=== PATIENT | female | born 1930 | race Caucasian/White ===

== ENCOUNTER 2016-12-03 19:28 | Emergency (ER) | payer MEDICARE, BC, OTHER ==
[2016-12-03] MEDS ORDERED: ACETAMINOPHEN 325 MG TABLET PO STA (20:16)
[2016-12-03] MEDS ORDERED: SODIUM CHLORIDE 0.9% 1,000 ML IV ONE (20:16)
[2016-12-03] MEDS ORDERED: METOCLOPRAMIDE 10 MG/2 ML VIAL IVP STA (20:17)
[2016-12-03] MEDS ORDERED: diphenhydrAMINE INJ 50 MG/ML VIAL IVP STA (20:17)
--- NOTE | 2016-12-03 20:31 | ED Physician Documentation ---
PD HPI HEADACHE - Stated complaint Stated Complaint: HEADACHE/EAR PX - Chief complaint Chief Complaint: Neuro - History obtained from History obtained from: Patient, Family - History of Present Illness Timing - onset: How many days ago (4) Timing - details: Gradual onset, Still present, Intermittant Location: Front Quality: Aching. No: Thunderclap Associated symptoms: No: Fever, Stiff neck, Nausea, Vomiting, Vision changes Improved by: Dark room Worsened by: Light Contributing factors: No: Anticoagulated, Possible carbon monoxide, Hypertension , Recent illness Similar symptoms before: Has not had sx before Recently seen: Not recently seen - Additional information Additional information: Patient is an 86 year old female with a history of chonic sinusities who is presenting to the emergency department for headache and ear fullness. patient states that 3 days prior she started not feeling feel. Patient states that she does not know when the headache started but the pain has become progressively worse. Patient states it iw worse with light and slightly better with rest. Patient states it is in her posterior head and radiates forward. Review of Systems Constitutional: denies: Fever, Chills, Myalgias Eyes: reports: Photophobia. denies: Decreased vision Ears: reports: Ear pain. denies: Tinnitus/ringing Nose: reports: Congestion. denies: Rhinorrhea / runny nose, Epistaxis Throat: denies: Dental pain / toothache, Sore throat Cardiac: denies: Chest pain / pressure, Palpitations Respiratory: reports: Cough. 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 - Present Medications Home Medications: Ambulatory Orders Medication Instructions Recorded Confirmed Albuterol 2.5 mg INH Q4H PRN #30 neb 07/12/13 11/11/14 Albuterol [Ventolin Hfa] 2 puffs INH Q4H PRN #1 inhaler 07/12/13 11/11/14 Hydrochlorothiazide 12.5 mg DAILY 07/12/13 11/11/14 Mupirocin 2% Oint [Bactroban 2% BID 07/12/13 11/11/14 Oint] Oxymetazoline HCl [Afrin] 15 ml NS BID #1 spray 11/11/14 Naproxen 375 mg PO BID #20 tablet 09/15/15 Tramadol HCl 50 mg PO Q6H PRN #15 tablet 09/15/15 - Allergies Allergies/Adverse Reactions: Allergies Allergy/AdvReac Type Severity Reaction Status Date / Time povidone-iodine Allergy Intermediate Itching Verified 12/03/16 19:37 [From Betadine] soap * [From Betadine] Allergy Intermediate Itching Verified 12/03/16 19:37 - Social History Does the pt smoke?: No Smoking Status: Never smoker Does the pt drink ETOH?: No Does the pt have substance abuse?: No - Immunizations Immunizations are current?: Yes - POLST Patient has POLST: No PD ED PE NORMAL - Vitals Vital signs reviewed: Yes - General General: Alert and oriented X 3, Well developed/nourished - HEENT HEENT: Atraumatic, PERRL, Ears normal, Moist mucous membranes, Pharynx benign - Neck Neck: Supple, no meningeal sign, No JVD - Cardiac Cardiac: RRR, No murmur - Respiratory Respiratory: No respiratory distress, Clear bilaterally - Abdomen Abdomen: Soft, Non tender, Non distended - Derm Derm: Normal color, Warm and dry, No rash - Extremities Extremities: No deformity, No tenderness to palpate, Normal ROM s pain, No edema , No calf tenderness / cord - Neuro Neuro: Alert and oriented X 3, cellar pumper 2-12 intact, No motor deficit, No sensory deficit, Normal speech - Psych Psych: Normal mood, Normal affect PD ED PE EXPANDED - Neck Neck: Soft tissue TTP (tenderness to palpation of bilateral neck, worse on on the left than the right, [place]) Results - Vitals Vitals: Vital Signs - 24 hr 12/03/16 12/03/16 19:31 22:09 Temperature 37.0 C 36.4 C L Heart Rate 74 82 Respiratory 16 17 Rate Blood Pressure 171/81 H 189/97 H O2 Saturation 96 96 Oxygen O2 Source Room air - Labs Labs: Laboratory Tests 12/03/16 12/03/16 12/03/16 20:15 20:28 20:28 WBC 8.8 RBC 3.93 L Hgb 12.6 Hct 37.2 MCV 94.8 MCH 32.0 H MCHC 33.8 RDW 13.7 Plt Count 178 MPV 9.5 Neut # 5.8 Lymph # 2.0 [place] # 0.8 Eos # 0.2 Baso # 0.0 Absolute Nucleated RBC 0.00 Nucleated RBCs 0.0 ESR Sodium 135 Potassium 3.7 Chloride 98 L Carbon Dioxide 26 Anion Gap 11.0 BUN 31 H Creatinine 1.1 H Estimated GFR (MDRD) 47 L Glucose 285 H Calcium 10.0 Total Bilirubin 0.5 AST 26 ALT 28 Alkaline Phosphatase 82 Total Protein 7.1 Albumin 3.7 Globulin 3.4 Albumin/Globulin Ratio 1.1 Lipase 32 Urine Color YELLOW Urine Clarity CLEAR Urine pH 6.0 Ur Specific [place] 1.015 Urine Protein NEGATIVE Urine Glucose (UA) 500 H Urine Ketones NEGATIVE Urine Occult Blood NEGATIVE Urine Nitrite NEGATIVE Urine Bilirubin NEGATIVE Urine Urobilinogen 0.2 (NORMAL) Ur Leukocyte Esterase NEGATIVE Ur Microscopic Review NOT INDICATED Urine Culture Comments NOT INDICATED 12/03/16 20:28 WBC RBC Hgb Hct MCV MCH MCHC RDW Plt Count MPV Neut # Lymph # [place] # Eos # Baso # Absolute Nucleated RBC Nucleated RBCs ESR 69 H Sodium Potassium Chloride Carbon Dioxide Anion Gap BUN Creatinine Estimated GFR (MDRD) Glucose Calcium Total Bilirubin AST ALT Alkaline Phosphatase Total Protein Albumin Globulin Albumin/Globulin Ratio Lipase Urine Color Urine Clarity Urine pH Ur Specific [place] Urine Protein Urine Glucose (UA) Urine Ketones Urine Occult Blood Urine Nitrite Urine Bilirubin Urine Urobilinogen Ur Leukocyte Esterase Ur Microscopic Review Urine Culture Comments - Rads (name of study) ct head Radiology: Final report received (no acute abnormalities seen) PD MEDICAL DECISION MAKING - ED course Complexity details: reviewed old records, reviewed results, re-evaluated patient , considered differential, d/w patient, d/w family ED course: Patient was seen and examined at bedside. IV access was gained and labs were drawn. patient was treated with reglan, benadryl fluids and tylenol. Imaging was ordered. When patient was re-evaluated after the fluids and CT she stated she was feeling much better. She still had some neck pain. Patient was offered LP, and additional medications. Patient stated that she was feeling better and would rather follow up with her doctor and come bad if she needed to. Patient was made aware of her hyperglycemia and her glucusuria. Patient was discharged in stable condition and appropriate for outpatient care as the likelihood of sah, encephalitis or meningitis were all unlikely. Departure - Departure Disposition: 01 Home, Self Care Clinical Impression: Neck muscle strain Condition: Good Instructions: ED Neck Pain No Trauma Follow-Up: John Morales MD [Primary Care Provider] - Within 3 Days Comments: Your diagnostics today were within normal limits, aside from your blood glucose and there was glucose in your indicating you likely have diabetes. You will need to follow up with your pmd this week for re-evaluation. You may return to the emergency department at any time for new, worsening or uncontrollable symptoms. Discharge Date/Time: 12/03/16 22:11
[2016-12-03 20:34] LABS: BASOPHILS % (AUTO) 0.5 %; EOSINOPHILS # (AUTO) 0.2 10^3/uL (0.0-0.7); EOSINOPHILS % (AUTO) 1.7 %; HCT - HEMATOCRIT 37.2 % (37.0-47.0); HGB - HEMOGLOBIN 12.6 g/dL (12.0-16.0); LYMPHOCYTES % (AUTO) 23.1 %; MEAN CORPUSCULAR HGB CONC 33.8 g/dL (32.0-36.0); MEAN CORPUSCULAR VOLUME 94.8 fL (81.0-99.0); MEAN PLATELET VOLUME 9.5 fL (7.9-10.8); MONOCYTES # (AUTO) 0.8 10^3/uL (0.0-1.0); MONOCYTES % (AUTO) 8.6 %; NEUTROPHILS # (AUTO) 5.8 10^3/uL (1.5-6.6); NEUTROPHILS % (AUTO) 66.1 %; RED BLOOD COUNT 3.93 10^6/uL (4.20-5.40); RED CELL DISTRIBUTION WIDTH 13.7 % (12.0-15.0); UNCORRECTED WHITE BLOOD COUNT 8.8 x10^3/uL; WHITE BLOOD COUNT 8.8 x10^3/uL (4.8-10.8)
[2016-12-03] MEDS ORDERED: diphenhydrAMINE INJ 50 MG/ML VIAL ONE (20:36)
[2016-12-03] MEDS ORDERED: METOCLOPRAMIDE 10 MG/2 ML VIAL ONE (20:36)
[2016-12-03] MEDS ORDERED: ACETAMINOPHEN 325 MG TABLET PO ONE (20:36)
[2016-12-03 20:46] LABS: ALBUMIN/GLOBULIN RATIO 1.1 (1.0-2.2); BILIRUBIN,TOTAL 0.5 mg/dL (0.2-1.0); CREATININE 1.1 mg/dL (0.4-1.0); POTASSIUM 3.7 mmol/L (3.5-5.0); TOTAL PROTEIN 7.1 g/dL (6.7-8.2)
--- NOTE | 2016-12-03 21:31 | CT Preliminary Report ---
Exam: CT Head W/O IMPRESSION: Generalized age-related cortical atrophic changes without evidence of acute intracranial abnormality. [facility] SITE ID: [id number]
--- NOTE | 2016-12-03 21:34 | CT Report ---
EXAM: CT HEAD EXAM DATE: 12/03/2016 09:00 PM. CLINICAL HISTORY: Headache. COMPARISON: CT sinuses 06/28/2008. TECHNIQUE: Multiaxial CT images were obtained from the foramen magnum to the vertex. IV contrast: Non e. Reformats: Coronal. In accordance with CT protocol optimization, one or more of the following dose reduction techniques w ere utilized for this exam: automated exposure control, adjustment of mA and/or KV based on patient s ize, or use of iterative reconstructive technique. FINDINGS: Parenchyma: No intraparenchymal hemorrhage. No evidence of mass, midline shift, or CT findings of acu te infarction. Esquivel-white differentiation is distinct. Extraaxial Spaces: Normal for age. No subdural or epidural collections identified. Ventricles: The ventricles and cortical sulci are enlarged, consistent with age-related tissue loss. Sinuses: Redemonstration prior sinus surgery. Status post bilateral lens replacement surgery. Imaged paranasal sinuses, orbits otherwise, and mastoids show no significant abnormality. Bones: No evidence of fracture or calvarial defect. Other: Diffuse chronic microangiopathic white matter changes are evident. Atherosclerosis of the intr acranial arteries. IMPRESSION: Generalized age-related cortical atrophic changes without evidence of acute intracranial abnormality. [facility] Referring Provider Line: [phone] SITE ID: [id number]
--- NOTE | 2016-12-03 21:41 | XRAY Preliminary Report ---
Exam: XR Chest 1 View IMPRESSION: No acute findings are seen. See the prior chest CT report [facility] SITE ID: [id number]
--- NOTE | 2016-12-03 21:43 | XRAY Report ---
EXAM: CHEST RADIOGRAPHY EXAM DATE: 12/03/2016 08:59 PM. CLINICAL HISTORY: Not feeling well, cough. COMPARISON: Chest 11/11/2014. CT chest 01/05/2014. TECHNIQUE: 1 view. FINDINGS: Lungs/Pleura: No pleural effusion or pneumothorax. No acute pulmonary findings are seen. Mediastinum: Within exam limitations, cardiomediastinal contour is normal. IMPRESSION: No acute findings are seen. See the prior chest CT report [facility] Referring Provider Line: [phone] SITE ID: [id number]
[2016-12-03 21:48] LABS: BILIRUBIN,URINE NEGATIVE (NEGATIVE)
[2016-12-03 21:50] LABS: UA CHARGE (STRIP ONLY) YES; UR CULTURE IF IND NOT INDICATED
[2016-12-03 22:10] VITALS: BP 189/97
== END 2016-12-03 22:11 | disposition home or self-care (01) ==
LOC: ED 19:28
DX: S16.1XXA Strain of muscle, fascia and tendon at neck level, initial encounter (principal); X58.XXXA Exposure to other specified factors, initial encounter; I10 Essential (primary) hypertension; R73.9 Hyperglycemia, unspecified; R81 Glycosuria
CPT/HCPCS: 36415; 70450; 71010; 80053; 81003; 83690; 85025; 85651; 96374; 96375; 99283; 99284; A9270; 81001; 87086

== ENCOUNTER 2017-01-14 10:24 | Outpatient (CLI) | payer MEDICARE, BC, OTHER ==
--- NOTE | 2017-01-14 13:32 | XRAY Report ---
TWO-VIEW LEFT FOREARM: 01/14/2017 CLINICAL INDICATION: Pain, swelling. FINDINGS: Frontal and lateral views of the left forearm demonstrate no evidence of acute fracture. There is osteoarthritis and chondrocalcinosis in the wrist and elbow. No radiopaque foreign body is seen in the soft tissues. IMPRESSION: NO EVIDENCE OF ACUTE FRACTURE. JOB #: [id number] EXT JOB #:[id number]
--- NOTE | 2017-01-14 13:33 | XRAY Report ---
THREE-VIEW LEFT WRIST: 01/14/2017 CLINICAL INDICATION: Pain, swelling. FINDINGS: AP, lateral, oblique views of the left wrist demonstrate no evidence of acute fracture. E xtensive chondrocalcinosis is present, with osteoarthritis. No radiopaque foreign body is seen in th e soft tissues. IMPRESSION: OSTEOARTHRITIS, NO EVIDENCE OF ACUTE FRACTURE. JOB #: [id number] EXT JOB #:[id number]
== END 2017-01-14 10:25 | disposition home or self-care (01) ==
LOC: DI 10:24
PROVIDERS: ATTEND Family Medicine
DX: M25.532 Pain in left wrist (principal); M25.432 Effusion, left wrist; M19.032 Primary osteoarthritis, left wrist

== ENCOUNTER 2017-04-25 10:42 | Outpatient (CLI) | payer MEDICARE, BC, OTHER ==
[2017-04-25 12:00] LABS: BASOPHILS % (AUTO) 0.4 %; EOSINOPHILS # (AUTO) 0.1 10^3/uL (0.0-0.7); EOSINOPHILS % (AUTO) 1.1 %; HGB - HEMOGLOBIN 13.5 g/dL (12.0-16.0); LYMPHOCYTES # (AUTO) 2.4 10^3/uL (1.5-3.5); LYMPHOCYTES % (AUTO) 27.3 %; MEAN CORPUSCULAR HEMOGLOBIN 31.7 pg (27.0-31.0); MEAN CORPUSCULAR HGB CONC 33.6 g/dL (32.0-36.0); MEAN CORPUSCULAR VOLUME 94.5 fL (81.0-99.0); MEAN PLATELET VOLUME 9.3 fL (7.9-10.8); MONOCYTES # (AUTO) 0.6 10^3/uL (0.0-1.0); MONOCYTES % (AUTO) 7.3 %; NEUTROPHILS # (AUTO) 5.6 10^3/uL (1.5-6.6); NEUTROPHILS % (AUTO) 63.9 %; PLT - PLATELET COUNT 169 10^3/uL (130-450); RED BLOOD COUNT 4.25 10^6/uL (4.20-5.40); RED CELL DISTRIBUTION WIDTH 14.3 % (12.0-15.0); WHITE BLOOD COUNT 8.8 x10^3/uL (4.8-10.8)
--- NOTE | 2017-04-26 13:46 | XRAY Report ---
DATE OF SERVICE: 04/25/2017 TWO VIEW CHEST: 04/25/2017 CLINICAL INDICATION: Bronchiectasis. COMPARISON: 12/03/2016 FINDINGS: Frontal and lateral views of the chest demonstrate a normal cardiac silhouette. The lungs are clear. No effusion or pneumothorax is evident. IMPRESSION: No evidence of acute cardiopulmonary disease. No significant interval change. TD: 04/25/2017 18:24
== END 2017-04-25 10:43 | disposition home or self-care (01) ==
LOC: DI 10:42
PROVIDERS: ATTEND Internal Medicine Infectious Disease
DX: J47.1 Bronchiectasis with (acute) exacerbation (principal)
CPT/HCPCS: 36415; 71020; 85025

== ENCOUNTER 2017-05-17 10:01 | Outpatient (CLI) | payer MEDICARE, BC, OTHER ==
--- NOTE | 2017-05-17 12:08 | XRAY Report ---
DATE OF SERVICE: 05/17/2017 TWO-VIEW CHEST: 05/17/2017 CLINICAL INDICATION: Pseudomonas pneumonia. COMPARISON: 04/25/2017 FINDINGS: Frontal and lateral views of the chest demonstrate a normal cardiac silhouette. The lungs remain clear. No effusion or pneumothorax is present. IMPRESSION: NO EVIDENCE OF NEW INFILTRATE. NO SIGNIFICANT INTERVAL CHANGE. TD: 05/17/2017 13:06
== END 2017-05-17 10:02 | disposition home or self-care (01) ==
LOC: DI 10:01
PROVIDERS: ATTEND Internal Medicine Infectious Disease
DX: J15.1 Pneumonia due to Pseudomonas (principal)
CPT/HCPCS: 71046

== ENCOUNTER 2017-05-27 10:41 | Outpatient (CLI) | payer MEDICARE, BC, OTHER ==
--- NOTE | 2017-05-27 16:44 | Mammography Report ---
DATE OF SERVICE: 05/27/2017 DIGITAL DIAGNOSTIC BILATERAL MAMMOGRAM: 05/27/2017 CLINICAL INDICATION: Sensation of fullness left upper outer breast. TECHNIQUE: Bilateral CC, MLO, left true lateral view. COMPARISON: 08/25/2014. FINDINGS: The breasts demonstrate fatty replacement bilaterally. No suspicious masses, clustered microcalcifications, or regions of architectural distortion are identified. Specifically, no abnormality is seen in the left upper outer quadrant. IMPRESSION: NEGATIVE EXAMINATION. RECOMMENDATION: ROUTINE ANNUAL SCREENING UNLESS OTHERWISE CLINICALLY INDICATED. BIRADS CATEGORY 1-NEGATIVE. STANDARD QUALIFYING STATEMENTS: 1. This examination was reviewed with the aid of Computer-Aided Detection (CAD). 2. A negative or benign imaging report should not delay biopsy if clinically suspicious findings are present. Consider surgical consultation if warranted. More than 5% of cancers are not identified by imaging. 3. Dense breasts may obscure an underlying neoplasm. TD: 05/27/2017 17:43
== END 2017-05-27 10:42 | disposition home or self-care (01) ==
LOC: DI 10:41
PROVIDERS: ATTEND Obstetrics & Gynecology
DX: N63.21 Unspecified lump in the left breast, upper outer quadrant (principal)
CPT/HCPCS: 77066

== ENCOUNTER 2017-07-29 10:15 | Emergency (ER) | payer MEDICARE, BC, OTHER ==
[2017-07-29 10:41] VITALS: BP 149/73
--- NOTE | 2017-07-29 13:07 | ED Physician Documentation ---
PD HPI BACK INJURY - Stated complaint Stated Complaint: GLF/BACK PX - History obtained from History obtained from: Patient - History of Present Illness Type of injury: Fall Where injury occurred: Home (was getting to the toilet and foot slipped, causing her to fall back gainst the wall, and struck right lower back ribs/ chest.) Timing - onset: Last night Timing - details: Abrupt onset, Still present Quality: Pain, Sharp Worsened by: Moving, Palpating, Other (with deep breathing) Associated symptoms: No: Weakness, Numbness, Hematuria Similar symptoms before: Has not had sx before Recently seen: Not recently seen Review of Systems Constitutional: denies: Fever, Chills Nose: denies: Rhinorrhea / runny nose, Congestion Throat: denies: Sore throat Respiratory: denies: Cough GI: denies: Nausea, Vomiting, Diarrhea Skin: denies: Abrasion (s), Laceration (s) Neurologic: denies: Focal weakness, Numbness, Altered mental status, Headache, Head injury PD PAST MEDICAL HISTORY - Past Medical History Cardiovascular: Hypertension, High cholesterol Respiratory: Other Endocrine/Autoimmune: Type 2 diabetes - Past Surgical History Past Surgical History: Yes 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 - Present Medications Home Medications: Ambulatory Orders Medication Instructions Recorded Confirmed Hydrochlorothiazide 25 mg PO DAILY 07/12/13 02/01/17 Fluticasone Propionate [Flovent 50 mcg INH DAILY 02/01/17 02/01/17 Diskus] Metformin HCl 500 mg PO BID 02/01/17 02/01/17 diazePAM [Valium] 2.5 mg PO PRN PRN 02/01/17 02/01/17 - Allergies Allergies/Adverse Reactions: Allergies Allergy/AdvReac Type Severity Reaction Status Date / Time povidone-iodine Allergy Intermediate Itching Verified 12/03/16 19:37 [From Betadine] soap * [From Betadine] Allergy Intermediate Itching Verified 12/03/16 19:37 levofloxacin AdvReac Respiratory Verified 02/01/17 11:44 - Social History Does the pt smoke?: No Smoking Status: Never smoker Does the pt drink ETOH?: No Does the pt have substance abuse?: No - Immunizations Immunizations are current?: Yes - POLST Patient has POLST: No PD ED PE NORMAL - Vitals Vital signs reviewed: Yes - General General: Alert and oriented X 3, Well developed/nourished - HEENT HEENT: Atraumatic - Neck Neck: Supple, no meningeal sign, No bony TTP, No adenopathy - Cardiac Cardiac: RRR, No murmur - Respiratory Respiratory: No respiratory distress, Clear bilaterally, Other (right posterolateral ribs with some tenderness but no crepitance. Tender over flank CVA area. RUQ abdomen also tender to palpation, causing pain into the back. ) - Abdomen Abdomen: Normal bowel sounds, Soft, Non distended, No organomegaly - Back Back: No spinal TTP - Derm Derm: Normal color, Warm and dry - Neuro Neuro: Alert and oriented X 3, No motor deficit, Normal speech Results - Vitals Vitals: Vital Signs - 24 hr 07/29/17 10:35 Temperature 36.9 C Heart Rate 60 Respiratory 18 Rate Blood Pressure 149/73 H O2 Saturation 98 Oxygen O2 Source Room air - Labs Labs: Laboratory Tests 07/29/17 07/29/17 13:30 15:25 Sodium 138 Potassium 4.0 Chloride 100 L Carbon Dioxide 30 Anion Gap 8.0 BUN 19 Creatinine 0.7 Estimated GFR (MDRD) 79 L Glucose 115 H Calcium 10.0 Urine Color YELLOW Urine Clarity CLEAR Urine pH 6.0 Ur Specific [place] <=1.005 Urine Protein NEGATIVE Urine Glucose (UA) NEGATIVE Urine Ketones NEGATIVE Urine Occult Blood NEGATIVE Urine Nitrite NEGATIVE Urine Bilirubin NEGATIVE Urine Urobilinogen 0.2 (NORMAL) Ur Leukocyte Esterase NEGATIVE Ur Microscopic Review NOT INDICATED Urine Culture Comments NOT INDICATED - Rads (name of study) ribs/chest Radiology: Prelim report reviewed (no obvious injuries; arthritic) abd CT Radiology: Prelim report reviewed (no acute injuries noted. Organs good. ) PD MEDICAL DECISION MAKING - ED course Complexity details: reviewed results (she declined IV contrast, so done plain. No obvious injuries. ), considered differential (tender lower back ribs but also in RUQ abd and flank, so concern for organ injury. to get CT. ), d/w patient Departure - Departure Disposition: 01 Home, Self Care Clinical Impression: Contusion of chest wall Qualifiers: Encounter type: initial encounter Laterality: right Qualified Code(s): S20.211A - Contusion of right front wall of thorax, initial encounter Accidental fall Qualifiers: Encounter type: initial encounter Qualified Code(s): W19.XXXA - Unspecified fall, initial encounter Condition: Stable Record reviewed to determine appropriate education?: Yes Instructions: ED Contusion Soft Tissue, ED Contusion Chest Wall Follow-Up: William Mcduffie DO [Primary Care Provider] - Comments: No signs of rib fracture nor internal organ injury based on your CT scan. It is soft tissue and chest wall contusion and you can use Tylenol or ibuprofen if needed for pains. Expect to be sore for several days to week. Recheck if other symptoms develop or worsening pain. Discharge Date/Time: 07/29/17 16:42
--- NOTE | 2017-07-29 13:15 | XRAY Preliminary Report ---
Exam: XR RIBS W/PA CHEST RT IMPRESSION: 1. No definite rib fracture or acute abnormality. 2. Probable mild left lower lobe atelectasis. Mild acute infiltrate, less likely. [facility] SITE ID: [id number]
--- NOTE | 2017-07-29 13:16 | XRAY Report ---
EXAM: RIGHT RIB RADIOGRAPHY EXAM DATE: 07/29/2017 12:37 PM. CLINICAL HISTORY: Rib injury. Pelvis morning. Right-sided rib pain. COMPARISON: Two-view chest exam 05/17/2017. TECHNIQUE: 1 view of the chest and 2 views of the ribs. FINDINGS: Bones: No displaced or definite rib fractures. Lungs: Minimal increased palpable atelectasis within the left lower lung. No dense consolidation. No pleural effusion. No pneumothorax. Mediastinum: Heart and mediastinal contours are unremarkable. Other: Mild height loss of approximately the L2 vertebral body is without change. IMPRESSION: 1. No definite rib fracture or acute abnormality. 2. Probable mild left lower lobe atelectasis. Mild acute infiltrate, less likely. [facility] Referring Provider Line: [phone] SITE ID: [id number]
[2017-07-29] MEDS ORDERED: SODIUM CHLORIDE 0.9% 1,000 ML IV ONE (13:21)
[2017-07-29] MEDS ORDERED: ACETAMINOPHEN 325 MG TABLET PO STA (13:22)
[2017-07-29 13:46] LABS: CREATININE 0.7 mg/dL (0.4-1.0)
[2017-07-29 15:37] LABS: BILIRUBIN,URINE NEGATIVE (NEGATIVE); GLUCOSE, URINE (UA) NEGATIVE (NEGATIVE); KETONES,URINE (UA) NEGATIVE (NEGATIVE); LEUKOCYTE ESTERASE, URINE NEGATIVE (NEGATIVE); NITRITE,URINE NEGATIVE (NEGATIVE); OCCULT BLOOD,URINE NEGATIVE (NEGATIVE); PROTEIN,URINE NEGATIVE (NEGATIVE); UROBILINOGEN,URINE 0.2 (NORMAL) E.U./dL (NORMAL)
[2017-07-29 15:44] LABS: CLARITY,URINE CLEAR (CLEAR)
--- NOTE | 2017-07-29 16:17 | CT Preliminary Report ---
Exam: CT ABDOMEN W/O IMPRESSION: Atelectasis versus infiltrate in the lingula and right middle lobe. Other chronic finding s as noted. No definite acute disease. [facility] SITE ID: [id number]
--- NOTE | 2017-07-29 16:18 | CT Report ---
EXAM: CT ABDOMEN EXAM DATE: 07/29/2017 02:14 PM. CLINICAL HISTORY: Fall with lower ribs/ kidney/RUQ area pain. COMPARISON: None. TECHNIQUE: Routine helical CT imaging was performed through the abdomen. IV contrast: None Enteric c ontrast: No. Reconstruction: Coronal and sagittal. In accordance with CT protocol optimization, one or more of the following dose reduction techniques w ere utilized for this exam: automated exposure control, adjustment of mA and/or KV based on patient s ize, or use of iterative reconstructive technique. FINDINGS: Lung Bases: Atelectasis versus infiltrate in the lingula and in the right middle lobe. Probable scarr ing in left costophrenic angle. Otherwise clear. No effusion or pneumothorax. Prominent coronary [place] ry calcifications. Liver: Normal. No masses. Gallbladder/Bile Ducts: Unremarkable. Spleen: Normal. Small accessory spleen. Pancreas: Normal. Adrenal Glands: Normal. Kidneys: Bilateral peripelvic cysts. Otherwise unremarkable. Peritoneal Cavity/Bowel: Normal. No free fluid, free air or adenopathy. No masses or acute inflammato ry process. The appendix is well visualized and normal. Vasculature: No aneurysms or other significant abnormality. Bones: Osteopenia. 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 Multilevel degenerat jesica changes. Lower endplate compression of L2, most likely old. No definite rib fracture. Other: None. IMPRESSION: Atelectasis versus infiltrate in the lingula and right middle lobe. Other chronic finding s as noted. No definite acute disease. [facility] Referring Provider Line: [phone] SITE ID: [id number]
== END 2017-07-29 16:42 | disposition home or self-care (01) ==
LOC: ED 10:15
DX: S20.211A Contusion of right front wall of thorax, initial encounter (principal); W01.198A Fall on same level from slipping, tripping and stumbling with subsequent striking against other object, initial encounter; Y92.002 Bathroom of unspecified non-institutional (private) residence as the place of occurrence of the external cause; I10 Essential (primary) hypertension; E78.00 Pure hypercholesterolemia, unspecified; E11.9 Type 2 diabetes mellitus without complications; Z79.84 Long term (current) use of oral hypoglycemic drugs
CPT/HCPCS: 36415; 71101; 74150; 80048; 81003; 96360; 99283; A9270; 81001; 87086

== ENCOUNTER 2017-11-05 14:44 | Inpatient (IN) | payer MEDICARE, BC, OTHER ==
[2017-11-05 16:05] LABS: BASOPHILS % (AUTO) 0.2 %; EOSINOPHILS # (AUTO) 0.2 10^3/uL (0.0-0.7); EOSINOPHILS % (AUTO) 1.6 %; HGB - HEMOGLOBIN 12.5 g/dL (12.0-16.0); LYMPHOCYTES # (AUTO) 2.2 10^3/uL (1.5-3.5); LYMPHOCYTES % (AUTO) 23.3 %; MEAN CORPUSCULAR HEMOGLOBIN 32.2 pg (27.0-31.0); MEAN CORPUSCULAR HGB CONC 33.2 g/dL (32.0-36.0); MEAN PLATELET VOLUME 8.7 fL (7.9-10.8); MONOCYTES # (AUTO) 0.7 10^3/uL (0.0-1.0); MONOCYTES % (AUTO) 7.4 %; NEUTROPHILS # (AUTO) 6.4 10^3/uL (1.5-6.6); NEUTROPHILS % (AUTO) 67.5 %; PLT - PLATELET COUNT 282 10^3/uL (130-450); RED BLOOD COUNT 3.89 10^6/uL (4.20-5.40); WHITE BLOOD COUNT 9.5 x10^3/uL (4.8-10.8)
[2017-11-05 16:22] LABS: ALBUMIN 3.5 g/dL (3.2-5.5); ALBUMIN/GLOBULIN RATIO 0.9 (1.0-2.2); BILIRUBIN,TOTAL 0.4 mg/dL (0.2-1.0); CALCIUM 9.7 mg/dL (8.5-10.3); CREATININE 0.7 mg/dL (0.4-1.0); TOTAL PROTEIN 7.4 g/dL (6.7-8.2)
--- NOTE | 2017-11-05 16:51 | ED Physician Documentation ---
PD HPI FEVER - Stated complaint Stated Complaint: COUGH/FEVER - Chief complaint Chief Complaint: Resp - History obtained from History obtained from: Patient - History of Present Illness Timing - onset: How many weeks ago (2) Timing details: Gradual onset, Still present Associated symptoms: Chills, Sweats, Productive cough Similar symptoms before: Work up / diagnostics, Treatment Recently seen: Clinic - Additional information Additional information: Patient is an 86 year old female with a history of bronchiectasis who is presenting to the emergency department for fevers and cough. patient states that she has had a cough for about two weeks. patient recently finished a course of azithromycin but her productive cough has continued. patient states that her doctor told her she has pseudomonas and needs an IV placed for IV antibiotics. Review of Systems Constitutional: reports: Fever Eyes: reports: Reviewed and negative Cardiac: denies: Chest pain / pressure Respiratory: reports: Cough. 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 - Present Medications Home Medications: Ambulatory Orders Medication Instructions Recorded Confirmed Hydrochlorothiazide 25 mg PO DAILY 07/12/13 11/05/17 Metformin HCl 500 mg PO BID 02/01/17 11/05/17 diazePAM [Valium] 2.5 mg PO QPM PRN 02/01/17 11/05/17 Albuterol 1.25 mg NEB DAILY 11/05/17 11/05/17 Aspirin [Aspirin EC] 81 mg PO DAILY 11/05/17 11/05/17 Methocarbamol 500 mg PO TID PRN 11/05/17 11/05/17 - Allergies Allergies/Adverse Reactions: Allergies Allergy/AdvReac Type Severity Reaction Status Date / Time povidone-iodine Allergy Intermediate Itching Verified 11/05/17 15:57 [From Betadine] soap * [From Betadine] Allergy Intermediate Itching Verified 11/05/17 15:57 levofloxacin AdvReac Respiratory Verified 11/05/17 15:57 - Social History Does the pt smoke?: No Smoking Status: Never smoker Does the pt drink ETOH?: No Does the pt have substance abuse?: No - Immunizations Immunizations are current?: Yes - POLST Patient has POLST: No PD ED PE NORMAL - General General: Alert and oriented X 3 - HEENT HEENT: Atraumatic, PERRL - Neck Neck: Supple, no meningeal sign - Cardiac Cardiac: RRR - Abdomen Abdomen: Soft, Non tender, Non distended - Derm Derm: Normal color, Warm and dry - Extremities Extremities: No deformity - Neuro Neuro: Alert and oriented X 3, No motor deficit, Normal speech Eye Opening: Spontaneous PD ED PE EXPANDED - Respiratory Respiratory: Decreased breath sounds, Right lower lobe, Left lower lobe Results - Vitals Vitals: Vital Signs - 24 hr 11/05/17 14:54 Temperature 36.7 C Heart Rate 71 Respiratory 18 Rate Blood Pressure 147/85 H O2 Saturation 95 Oxygen O2 Source Room air - Labs Labs: Laboratory Tests 11/05/17 11/05/17 11/05/17 16:01 16:01 16:01 WBC 9.5 RBC 3.89 L Hgb 12.5 Hct 37.7 MCV 97.0 MCH 32.2 H MCHC 33.2 RDW 13.0 Plt Count 282 MPV 8.7 Neut # (Auto) 6.4 Lymph # (Auto) 2.2 [place] # (Auto) 0.7 Eos # (Auto) 0.2 Baso # (Auto) 0.0 Absolute Nucleated RBC 0.01 Nucleated RBC % 0.1 Sodium 137 Potassium 4.1 Chloride 101 Carbon Dioxide 27 Anion Gap 9.0 BUN 15 Creatinine 0.7 Estimated GFR (MDRD) 79 L Glucose 119 H Lactic Acid 0.9 Calcium 9.7 Total Bilirubin 0.4 AST 24 ALT 27 Alkaline Phosphatase 61 Total Protein 7.4 Albumin 3.5 Globulin 3.9 Albumin/Globulin Ratio 0.9 L Lipase 27 - Rads (name of study) chest x-ray Radiology: Final report received (bronchial pneumonia ) PD MEDICAL DECISION MAKING - ED course Complexity details: reviewed old records, reviewed results, re-evaluated patient , considered differential, d/w patient, d/w family, 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 IV access was gained and labs were drawn. chest x-ray was performed. Patient's doctor, Dr. Dacosta was contacted. She states that patient has had psuedomonas in the past. patient has a an allergy to fluoroquinolones and should be started on cefepim 2gm and inhaled tobramycin until cultures return. Case was discussed with in house hospitalist. Patient was treated with cefepime and and admitted for further evaluation and care. - Sepsis Event Vital Signs: Vital Signs - 24 hr 11/05/17 14:54 Temperature 36.7 C Heart Rate 71 Respiratory 18 Rate Blood Pressure 147/85 H O2 Saturation 95 Oxygen O2 Source Room air Departure - Departure Disposition: [facility] DC/Xfer Clinical Impression: Pneumonia Condition: Stable
--- NOTE | 2017-11-05 16:59 | XRAY Report ---
Procedure Date: 11/05/2017 Accession Number: [id number] / [id number] Procedure: XR - Chest 2 View X-Ray CPT Code: 23263 FULL RESULT: EXAM: CHEST RADIOGRAPHY EXAM DATE: 11/05/2017 04:23 PM. CLINICAL HISTORY: Fever, cough. COMPARISON: 07/29/2017. TECHNIQUE: 2 views. FINDINGS: Lungs/Pleura: Lung volumes within normal limits. Mild patchy coarsening of peribronchial lung markings bilaterally with increase in both bases compared to before. No confluent consolidation. No pneumothorax or pleural fluid. Mediastinum: Heart and mediastinal contours are unremarkable. Mild aortic arch calcification. Other: Moderate generalized thoracic kyphosis. IMPRESSION: Patchy coarsening of peribronchial lung markings bilaterally with increase in both lung bases from before which could reflect developing bronchopneumonia. RADIA
[2017-11-05] MEDS ORDERED: CEFEPIME 2 GM in SODIUM CHLORIDE 0.9% MINIBAG 100 ML IV STA (17:33)
[2017-11-05] MEDS ORDERED: ONDANSETRON 4 MG/2 ML VIAL IVP PRN (18:15)
[2017-11-05] MEDS ORDERED: ACETAMINOPHEN 325 MG TABLET PO PRN (18:15)
[2017-11-05] MEDS ORDERED: SODIUM CHLORIDE FLUSH 0.9% 10 ML SYRINGE IVP PRN (18:15)
[2017-11-05] MEDS ORDERED: METHOCARBAMOL 500 MG TABLET PO PRN (18:21)
[2017-11-05] MEDS ORDERED: ALBUTEROL NEB 2.5 MG/3 ML INH PRN (18:22)
--- NOTE | 2017-11-05 18:25 | HISTORY & PHYSICAL EXAMINATION ---
Chief Complaint - Chief Complaint Chief Complaint: fever, cough History of Present Illness - Admitted From Admitted From:: ER - History Obtained From History obtained from: Pt - History of Present Illness HPI Comment/Other: Ms.Mueller Flaherty is a 86-yrs-old female with a H significance for pneumonia, bronchiectasis, HTN, HLD, DM2, who present ER for complaints of fever and cough. Pt report she had fever at 102 degree for 4 days, continued cough with "lots of greenish sputum."pt report she had the diagnosis of bronchiectasis over decades. Since that, she continue to have chronic cough, lots of sputum, many times of pneumonia. patient recently visited her PCP and put on Azithromycin. She report she finished a course of azithromycin but her productive cough with greenish sputum has continued. Her doctor told her she has pseudomonas, needs to go hospital, and has an IV placed for IV antibiotics. Patient's doctor, Dr. Dacosta was contacted by ER provider. She states that pt had had hx of psuedomonas, also patient has a an allergy to fluoroquinolones and pt should be started on cefepim 2gm and inhaled tobramycin until cultures return. Pt denies chest pain, headache, vision change, dysuria. Pt is afebrile in ER, 96% sats on room air. CXR reveals bilateral lung base of bronchopneumonia. 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 Living arrangement: At home Living Situation: With spouse/s.o. Social History Notes: pt report she never cigarette smoking but had experience of exposed on second hand cigarette smoking from her previous . She denies alcohol and drug abuse - Substance History Use: Uses substance without health or social issues: NONE - POLST Patient has POLST: No POLST Status: Full Code Meds/Allgy - Home Medications Home Medications: Ambulatory Orders Medication Instructions Recorded Confirmed Hydrochlorothiazide 25 mg PO DAILY 07/12/13 11/05/17 Metformin HCl 500 mg PO BID 02/01/17 11/05/17 diazePAM [Valium] 2.5 mg PO QPM PRN 02/01/17 11/05/17 Albuterol 1.25 mg NEB DAILY 11/05/17 11/05/17 Aspirin [Aspirin EC] 81 mg PO DAILY 11/05/17 11/05/17 Methocarbamol 500 mg PO TID PRN 11/05/17 11/05/17 - Allergies Allergies/Adverse Reactions: Allergies Allergy/AdvReac Type Severity Reaction Status Date / Time povidone-iodine Allergy Intermediate Itching Verified 11/05/17 15:57 [From Betadine] soap * [From Betadine] Allergy Intermediate Itching Verified 11/05/17 15:57 levofloxacin AdvReac Respiratory Verified 11/05/17 15:57 Review of Systems - Constitutional Constitutional: reports: Fatigue, Fever. denies: Chills, Malaise, Weakness, Poor appetite, Diaphoresis, Night sweats - Eyes Eyes: denies: Pain, Irritation, Amaurosis, Blurred vision, Spots in vision, Field loss, Vision loss, Dipolpia - Ears, Nose & Throat Ears, Nose & Throat: denies: Ear pain, Hearing loss, Hearing aids, Tinnitus, Vertigo, Nasal pain, Nasal discharge, Nosebleeds, Nasal obstruction, Nasal congestion, Dentures, Sore throat, Mouth lesions, Bleeding gums, Dental decay - Cardiovascular Cariovascular: denies: Irregular heart rate, Palpitations, Chest pain, Edema, Lightheadedness, Syncope, Exertional dyspnea, Decr. exercise tolerance - Respiratory Respiratory: reports: Cough, Sputum production, SOB with exertion. denies: Wheezing, Snoring, Hemoptysis, Orthopnea, SOB at rest - Gastrointestinal Gastrointestinal: denies: Abdominal pain, Abdominal distention, Constipation, Diarrhea, Change in bowel habits, Rectal bleeding, Black stools, Nausea, Vomiting, Bile emesis, Aidan blood emesis, Coffee grounds emesis, Reflux/ heartburn, Bloating, Poor appetite - Genitourinary Genitourinary: denies: Dysuria, Frequency, Urgency, Hematuria, Incontinence, Flank pain, Nocturia, Urethral discharge - Musculoskeletal Musculoskeletal: denies: Muscle pain, Back pain, Muscle aches, Stiffness, Limited range of motion, Muscle weakness, Gout, Joint pain - Integumentary Integumentary: denies: Rash, Pruritis, Lesions, Dryness, Lumps, Acne, Pigment changes, Nail changes - Neurological Neurological: denies: General weakness, Focal weakness, Headache, Dizziness, Numbness, Memory problems, Pre-existing deficit, Abnormal gait, Seizures, Incoordination, Slurred speech - Psychiatric Psychiatric: denies: Depression, Anxiety, Suicidal, Delusions, Hallucinations, Homicidal - Endocrine Endocrine: denies: Polyuria, Polydypsia, Polyphagia, Intolerance to cold - Hematologic/Lymphatic Hematologic/Lymphatic: reports: Recurrent infections. denies: Anemia, Bruising , Petechiae, Blood clots, Lymphadenopathy, Bleeding tendencies Exam - Vital Signs Reviewed Vital Signs: Yes Vital Signs: Vital Signs x48h Temp Pulse Resp BP Pulse Ox 11/05/17 14:54 36.7 C 71 18 147/85 H 95 - Physical Exam General Appearance: positive: No acute distress, Alert. negative: Lethargic Eyes Bilateral: positive: Normal inspection, PERRL, No lid inflammation, Conjunctivae nml ENT: positive: ENT inspection nml, Pharynx nml, No signs of dehydration. negative: Purulent nasal drainage, Pharyngeal erythema, Oral lesions Neck: positive: Nml inspection, Thyroid nml, No JVD, Trachea midline. negative : Thyromegaly, Lymphadenopathy (R), Lymphadenopathy (L), Stiff neck, Swelling/ bruising, Tracheal deviation Respiratory: positive: Chest non-tender, No respiratory distress, Rhonchi. negative: Wheezes, Rales Cardiovascular: positive: Regular rate & rhythm, No murmur, No gallop. negative : Irregularly irregular, Extrasystoles, Tachycardia, Bradycardia, JVD present, Systolic murmur, Diastolic murmur Peripheral Pulses: positive: 2+ Abdomen: positive: Non-tender, No organomegaly, Nml bowel sounds, No distention. negative: Tenderness, Guarding, Rebound Back: positive: Nml inspection. negative: CVA tenderness (R), CVA tenderness (L ) Skin: positive: Color nml, No rash, Warm, Dry. negative: Cyanosis, Diaphoresis , Pallor Extremities: positive: Non-tender, Full ROM, Nml appearance. negative: Calf tenderness, Joint swelling, Yenifer's sign/cords Neurologic/Psychiatric: positive: Oriented x3, Motor nml, Sensation nml, Mood/ affect nml. 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 cough control (3) HTN (hypertension) Conclusion/Plan: stable, will remain home meds (4) DM2 (diabetes mellitus, type 2) Conclusion/Plan: hold home metformin check A1C, Slide scale, ACHS (5) Anxiety Conclusion/Plan: stable, remain home meds D (6) DVT prophylaxis Conclusion/Plan: SCD and Lovenox (7) Full code status Conclusion/Plan: pt request full code - Lab Results Fish Bones: 11/06/17 04:45 11/06/17 04:45 Core Measures - Anticipated LOS I expect patient to be DC'd or transferred within 96 hours.: Yes - DVT/VTE - Prophylaxis VTE/DVT Device ordered at admit?: Yes VTE/DVT Prophylaxis med ordered at admit?: Yes
[2017-11-05 18:56] LABS: HB2 TOTAL 13.6 g/dL; HEMOGLOBIN A1C 0.83 g/dL; HEMOGLOBIN A1C % 7.7 % (4.6-6.2)
[2017-11-05] MEDS: guaiFENesin 600 MG TABLET PO SCH (20:10)
[2017-11-05] MEDS: SODIUM CHLORIDE 0.9% 1,000 ML IV SCH (20:10)
[2017-11-05] MEDS: CEFEPIME 2 GM in SODIUM CHLORIDE 0.9% MINIBAG 100 ML IV SCH ×2 (20:11→20:37)
[2017-11-05] MEDS: INSULIN ASPART 300 UNIT/3 ML PEN SUBQ SCH (20:45)
[2017-11-06] MEDS: SODIUM CHLORIDE FLUSH 0.9% 10 ML SYRINGE IVP SCH ×3 (00:41→16:58)
[2017-11-06 05:18] LABS: BASOPHILS % (AUTO) 0.3 %; EOSINOPHILS # (AUTO) 0.2 10^3/uL (0.0-0.7); EOSINOPHILS % (AUTO) 1.8 %; HGB - HEMOGLOBIN 11.9 g/dL (12.0-16.0); LYMPHOCYTES # (AUTO) 2.6 10^3/uL (1.5-3.5); LYMPHOCYTES % (AUTO) 27.1 %; MEAN CORPUSCULAR HEMOGLOBIN 31.9 pg (27.0-31.0); MEAN CORPUSCULAR HGB CONC 32.6 g/dL (32.0-36.0); MEAN CORPUSCULAR VOLUME 97.9 fL (81.0-99.0); MEAN PLATELET VOLUME 8.9 fL (7.9-10.8); MONOCYTES # (AUTO) 0.7 10^3/uL (0.0-1.0); MONOCYTES % (AUTO) 7.2 %; NEUTROPHILS # (AUTO) 6.2 10^3/uL (1.5-6.6); NEUTROPHILS % (AUTO) 63.6 %; PLT - PLATELET COUNT 246 10^3/uL (130-450); RED BLOOD COUNT 3.71 10^6/uL (4.20-5.40); RED CELL DISTRIBUTION WIDTH 13.3 % (12.0-15.0); WHITE BLOOD COUNT 9.7 x10^3/uL (4.8-10.8)
[2017-11-06 05:21] LABS: ALBUMIN 2.9 g/dL (3.2-5.5); ALBUMIN/GLOBULIN RATIO 0.8 (1.0-2.2); BILIRUBIN,TOTAL 0.6 mg/dL (0.2-1.0); CALCIUM 9.2 mg/dL (8.5-10.3); CREATININE 0.7 mg/dL (0.4-1.0); MAGNESIUM 1.9 mg/dL (1.7-2.8); TOTAL PROTEIN 6.5 g/dL (6.7-8.2)
[2017-11-06] MEDS: SODIUM CHLORIDE 0.9% 1,000 ML IV SCH ×3 (06:42→17:36)
[2017-11-06] MEDS: INSULIN ASPART 300 UNIT/3 ML PEN SUBQ SCH ×4 (08:46→21:13)
[2017-11-06] MEDS: ENOXAPARIN 40 MG/0.4 ML SYRINGE SUBQ SCH (08:48)
[2017-11-06] MEDS: guaiFENesin 600 MG TABLET PO SCH ×2 (08:48→21:10)
[2017-11-06] MEDS: ASPIRIN EC 81 MG TABLET PO SCH (08:48)
[2017-11-06] MEDS: CEFEPIME 2 GM in SODIUM CHLORIDE 0.9% MINIBAG 100 ML IV SCH ×2 (08:48→21:09)
[2017-11-06] MEDS: hydroCHLOROthiazide 25 MG TABLET PO SCH (08:48)
[2017-11-06] MEDS: FAMOTIDINE 20 MG TABLET PO SCH (08:48)
[2017-11-06] MEDS: POLYETHYLENE GLYCOL 3350 17 GM PACKET PO SCH (08:48)
--- NOTE | 2017-11-06 12:39 | PROVIDER PROGRESS NOTE ---
Subjective - Prog Note Date Prog Note Date: 11/06/17 - Subjective Pt reports feeling: Improved Subjective: pt report she feel some better but still has cough as her chronic status. pt denies fever, chill, N/V/D, CP. I consulted with pharmacy for inhaled Tobramycin. We do not have this meds now. Pharmacy will make the medication for pt in the tomorrow. Current Medications - Current Medications Current Medications: Active Medications Acetaminophen (Tylenol) 650 mg PO Q4HR PRN PRN Reason: Pain 1 to 4 Albuterol () 2.5 mg INH RTQ4H PRN PRN Reason: Wheezing Last Admin: 11/06/17 11:14 Dose: 2.5 mg Aspirin (Ecotrin) 81 mg PO DAILY [facility] Last Admin: 11/06/17 08:48 Dose: 81 mg Diazepam (Valium) 2.5 mg PO QPM PRN PRN Reason: Insomnia Enoxaparin Sodium (Lovenox) 40 mg SUBQ DAILY [facility] Last Admin: 11/06/17 08:48 Dose: 40 mg Famotidine (Pepcid) 20 mg PO DAILY [facility] Last Admin: 11/06/17 08:48 Dose: 20 mg Guaifenesin (Mucinex) 600 mg PO BID [facility] Last Admin: 11/06/17 08:48 Dose: 600 mg Hydrochlorothiazide (Hydrodiuril) 25 mg PO DAILY [facility] Last Admin: 11/06/17 08:48 Dose: 25 mg Cefepime HCl 2 gm/ Sodium (Chloride) 100 mls @ 200 mls/hr IV BID [facility] Last Infusion: 11/06/17 10:19 Dose: Infused Sodium Chloride (Normal Saline 0.9%) 1,000 mls @ 83.3 mls/hr IV .Q12H1M [facility] Insulin Aspart (Novolog) 1 - 5 unit SUBQ 0800,1200,1700,2100 CHANDLER PRN Reason: Protocol Last Admin: 11/06/17 12:30 Dose: Not Given Methocarbamol (Robaxin) 500 mg PO TID PRN PRN Reason: MUSCLE SPASMS Ondansetron HCl (Zofran Inj) 4 mg IVP Q6HR PRN PRN Reason: Nausea / Vomiting Polyethylene Glycol (Miralax) 17 gm PO DAILY [facility] Last Admin: 11/06/17 08:48 Dose: 17 gm Sodium Chloride (Normal Saline Flush 0.9%) 10 ml IVP PRN PRN PRN Reason: NEEDED PER PROVIDER ORDERS Sodium Chloride (Normal Saline Flush 0.9%) 10 ml IVP 0100,0900,1700 CHANDLER Last Admin: 11/06/17 08:49 Dose: Not Given Hydrochlorothiazide 25 mg PO DAILY 07/12/13 Metformin HCl 500 mg PO BID 02/01/17 diazePAM [Valium] 2.5 mg PO QPM PRN 02/01/17 Albuterol 1.25 mg NEB DAILY 11/05/17 Aspirin [Aspirin EC] 81 mg PO DAILY 11/05/17 Methocarbamol 500 mg PO TID PRN 11/05/17 Objective - Vital Signs/Intake & Output Reviewed Vital Signs: Yes Vital Signs: Vital Signs x48h Temp Pulse Pulse Resp BP Pulse Ox 11/06/17 11:14 74 17 11/06/17 08:52 37.1 C 66 17 123/60 94 Intake & Output: Intake & Output 11/03/17 11/04/17 11/05/17 11/06/17 23:59 23:59 23:59 23:59 Intake Total 200 1400 Balance 200 1400 - Objective General Appearance: positive: No acute distress, Alert. negative: Lethargic Eyes Bilateral: positive: Normal inspection, PERRL, No lid inflammation, Conjunctivae nml ENT: positive: ENT inspection nml, Pharynx nml, No signs of dehydration. negative: Purulent nasal drainage, Pharyngeal erythema, Oral lesions Neck: positive: Nml inspection, Thyroid nml, No JVD. negative: Trachea midline , Thyromegaly, Lymphadenopathy (R), Lymphadenopathy (L), Stiff neck, Swelling/ bruising, Tracheal deviation Respiratory: positive: Chest non-tender, No respiratory distress, Rhonchi. negative: Wheezes, Rales Cardiovascular: positive: Regular rate & rhythm, No murmur, No gallop. negative : Irregularly irregular, Extrasystoles, Tachycardia, PMI displaced laterally, JVD present, Systolic murmur, Diastolic murmur Peripheral Pulses: 2+ Radial (R), 2+ Radial (L), 2+ Dorsalis pedis (R), 2+ Dorsalis pedis (L) Abdomen: positive: Non-tender, No organomegaly, Nml bowel sounds, No distention. negative: Tenderness, Guarding, Rebound Back: positive: Nml inspection. negative: CVA tenderness (R), CVA tenderness (L ) Skin: positive: Color nml, No rash, Warm, Dry. negative: Cyanosis, Diaphoresis , Pallor Extremities: positive: Non-tender, Full ROM, Nml appearance. negative: Calf tenderness, Joint swelling, Yenifer's sign/cords Neurologic/Psychiatric: positive: Oriented x3, Motor nml, Sensation nml, Mood/ affect nml. negative: Weakness, Sensory loss, Facial droop, Slurred/abnml speech, Depressed mood/affect Reflexes: Bicep (R): 0 - Lab Results Fish Bones: 11/06/17 04:45 11/06/17 04:45 Other Labs: Lab Results x24hrs 11/06/17 11/06/17 11/06/17 Range/Units 11:44 07:55 04:45 WBC (4.8-10.8) x10^3/uL RBC (4.20-5.40) 10^6/uL Hgb (12.0-16.0) g/dL Hct (37.0-47.0) % MCV (81.0-99.0) fL MCH (27.0-31.0) pg MCHC (32.0-36.0) g/dL RDW (12.0-15.0) % Plt Count (130-450) 10^3/uL MPV (7.9-10.8) fL Neut # (Auto) (1.5-6.6) 10^3/uL Lymph # (Auto) (1.5-3.5) 10^3/uL [place] # (Auto) (0.0-1.0) 10^3/uL Eos # (Auto) (0.0-0.7) 10^3/uL Baso # (Auto) (0.0-0.1) 10^3/uL Absolute Nucleated RBC x10^3/uL Nucleated RBC % /100WBC Sodium 141 (135-145) mmol/L Potassium 4.1 (3.5-5.0) mmol/L Chloride 107 (101-111) mmol/L Carbon Dioxide 26 (21-32) mmol/L Anion Gap 8.0 (6-13) BUN 13 (6-20) mg/dL Creatinine 0.7 (0.4-1.0) mg/dL Estimated GFR (MDRD) 79 L (>89) Glucose 136 H (70-100) mg/dL POC Whole Bld Glucose 108 H 126 H (70 - 100) mg/dL Calcium 9.2 (8.5-10.3) mg/dL Magnesium 1.9 (1.7-2.8) mg/dL Total Bilirubin 0.6 (0.2-1.0) mg/dL AST 21 (10-42) IU/L ALT 24 (10-60) IU/L Alkaline Phosphatase 53 (42-121) IU/L Total Protein 6.5 L (6.7-8.2) g/dL Albumin 2.9 L (3.2-5.5) g/dL Globulin 3.6 (2.1-4.2) g/dL Albumin/Globulin Ratio 0.8 L (1.0-2.2) 11/06/17 11/05/17 Range/Units 04:45 20:15 WBC 9.7 (4.8-10.8) x10^3/uL RBC 3.71 L (4.20-5.40) 10^6/uL Hgb 11.9 L (12.0-16.0) g/dL Hct 36.3 L (37.0-47.0) % MCV 97.9 (81.0-99.0) fL MCH 31.9 H (27.0-31.0) pg MCHC 32.6 (32.0-36.0) g/dL RDW 13.3 (12.0-15.0) % Plt Count 246 (130-450) 10^3/uL MPV 8.9 (7.9-10.8) fL Neut # (Auto) 6.2 (1.5-6.6) 10^3/uL Lymph # (Auto) 2.6 (1.5-3.5) 10^3/uL [place] # (Auto) 0.7 (0.0-1.0) 10^3/uL Eos # (Auto) 0.2 (0.0-0.7) 10^3/uL Baso # (Auto) 0.0 (0.0-0.1) 10^3/uL Absolute Nucleated RBC 0.00 x10^3/uL Nucleated RBC % 0.0 /100WBC Sodium (135-145) mmol/L Potassium (3.5-5.0) mmol/L Chloride (101-111) mmol/L Carbon Dioxide (21-32) mmol/L Anion Gap (6-13) BUN (6-20) mg/dL Creatinine (0.4-1.0) mg/dL Estimated GFR (MDRD) (>89) Glucose (70-100) mg/dL POC Whole Bld Glucose 172 H (70 - 100) mg/dL Calcium (8.5-10.3) mg/dL Magnesium (1.7-2.8) mg/dL Total Bilirubin (0.2-1.0) mg/dL AST (10-42) IU/L ALT (10-60) IU/L Alkaline Phosphatase (42-121) IU/L Total Protein (6.7-8.2) g/dL Albumin (3.2-5.5) g/dL Globulin (2.1-4.2) g/dL Albumin/Globulin Ratio (1.0-2.2) ABX Reporting Has patient been on IV antibiotics over the past 48 hours?: Yes Assessment/Plan - Problem List (1) Pneumonia Impression: (1) Pneumonia Conclusion/Plan: continue cefepim and will start inhaled tobramycin as soon as pharmacy has it. 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
[2017-11-06] MEDS: SACCHAROMYCES BOULARDII 250 MG CAPSULE PO SCH ×2 (13:10→16:57)
[2017-11-06] MEDS: diazePAM 5 MG TABLET PO PRN (23:34)
[2017-11-07] MEDS: SODIUM CHLORIDE FLUSH 0.9% 10 ML SYRINGE IVP SCH ×4 (00:54→23:33)
[2017-11-07 04:49] LABS: BASOPHILS % (AUTO) 0.4 %; EOSINOPHILS # (AUTO) 0.2 10^3/uL (0.0-0.7); EOSINOPHILS % (AUTO) 2.2 %; HGB - HEMOGLOBIN 11.6 g/dL (12.0-16.0); LYMPHOCYTES # (AUTO) 2.6 10^3/uL (1.5-3.5); LYMPHOCYTES % (AUTO) 29.4 %; MEAN CORPUSCULAR HEMOGLOBIN 32.5 pg (27.0-31.0); MEAN CORPUSCULAR HGB CONC 34.1 g/dL (32.0-36.0); MEAN CORPUSCULAR VOLUME 95.4 fL (81.0-99.0); MEAN PLATELET VOLUME 9.1 fL (7.9-10.8); MONOCYTES # (AUTO) 0.8 10^3/uL (0.0-1.0); MONOCYTES % (AUTO) 8.7 %; NEUTROPHILS # (AUTO) 5.2 10^3/uL (1.5-6.6); NEUTROPHILS % (AUTO) 59.3 %; PLT - PLATELET COUNT 246 10^3/uL (130-450); RED BLOOD COUNT 3.57 10^6/uL (4.20-5.40); WHITE BLOOD COUNT 8.8 x10^3/uL (4.8-10.8)
[2017-11-07 05:00] LABS: ALBUMIN 2.9 g/dL (3.2-5.5); ALBUMIN/GLOBULIN RATIO 0.8 (1.0-2.2); BILIRUBIN,TOTAL 0.5 mg/dL (0.2-1.0); CALCIUM 9.2 mg/dL (8.5-10.3); CREATININE 0.7 mg/dL (0.4-1.0); TOTAL PROTEIN 6.4 g/dL (6.7-8.2)
[2017-11-07] MEDS: SODIUM CHLORIDE 0.9% 1,000 ML IV SCH ×2 (06:17→23:33)
[2017-11-07] MEDS: ASPIRIN EC 81 MG TABLET PO SCH (08:32)
[2017-11-07] MEDS: POLYETHYLENE GLYCOL 3350 17 GM PACKET PO SCH (08:32)
[2017-11-07] MEDS: SACCHAROMYCES BOULARDII 250 MG CAPSULE PO SCH ×2 (08:32→19:03)
[2017-11-07] MEDS: INSULIN ASPART 300 UNIT/3 ML PEN SUBQ SCH ×4 (08:32→21:58)
[2017-11-07] MEDS: FAMOTIDINE 20 MG TABLET PO SCH (08:33)
[2017-11-07] MEDS: guaiFENesin 600 MG TABLET PO SCH ×2 (08:33→21:55)
[2017-11-07] MEDS: hydroCHLOROthiazide 25 MG TABLET PO SCH (08:33)
[2017-11-07] MEDS: CEFEPIME 2 GM in SODIUM CHLORIDE 0.9% MINIBAG 100 ML IV SCH ×2 (08:34→21:55)
[2017-11-07] MEDS: ENOXAPARIN 40 MG/0.4 ML SYRINGE SUBQ SCH (08:34)
[2017-11-07] MEDS ORDERED: BENZOCAINE/MENTHOL LOZENGE MM PRN (08:54)
[2017-11-07 10:25] LABS: CHOL/HDL RATIO 3.6 (<4.4); CHOLESTEROL 123 mg/dL; HDL CHOLESTEROL 34 mg/dL; LDL CHOLESTEROL,CALCULATED 63 mg/dL; LDL/HDL RATIO 1.9 (<4.4); VLDL CHOLESTEROL 26 mg/dL
[2017-11-07] MEDS: SODIUM CHLORIDE IH SCH ×2 (10:45→19:27)
[2017-11-07] MEDS ORDERED: TOBRAMYCIN IH ONE ×2 (10:45→19:27)
[2017-11-07] MEDS ORDERED: SODIUM CHLORIDE IH ONE ×2 (10:45→19:27)
[2017-11-07] MEDS: TOBRAMYCIN IH SCH ×2 (10:45→19:27)
--- NOTE | 2017-11-07 14:54 | PROVIDER PROGRESS NOTE ---
Subjective - Prog Note Date Prog Note Date: 11/07/17 - Subjective Pt reports feeling: Improved Subjective: pt report she feel better today. cough is reduced, and breath is better. No fever, chill, CP. Current Medications - Current Medications Current Medications: Active Medications Acetaminophen (Tylenol) 650 mg PO Q4HR PRN PRN Reason: Pain 1 to 4 Albuterol () 2.5 mg INH RTQ4H PRN PRN Reason: Wheezing Last Admin: 11/06/17 11:14 Dose: 2.5 mg Aspirin (Ecotrin) 81 mg PO DAILY [facility] Last Admin: 11/07/17 08:32 Dose: 81 mg Diazepam (Valium) 2.5 mg PO QPM PRN PRN Reason: Insomnia Last Admin: 11/06/17 23:34 Dose: 2.5 mg Enoxaparin Sodium (Lovenox) 40 mg SUBQ DAILY [facility] Last Admin: 11/07/17 08:34 Dose: 40 mg Famotidine (Pepcid) 20 mg PO DAILY [facility] Last Admin: 11/07/17 08:33 Dose: Not Given Guaifenesin (Mucinex) 600 mg PO BID [facility] Last Admin: 11/07/17 08:33 Dose: 600 mg Hydrochlorothiazide (Hydrodiuril) 25 mg PO DAILY [facility] Last Admin: 11/07/17 08:33 Dose: 25 mg Cefepime HCl 2 gm/ Sodium (Chloride) 100 mls @ 200 mls/hr IV BID [facility] Last Infusion: 11/07/17 09:15 Dose: Infused Sodium Chloride (Normal Saline 0.9%) 1,000 mls @ 83.3 mls/hr IV .Q12H1M [facility] Last Infusion: 11/07/17 09:15 Dose: 83.3 mls/hr Insulin Aspart (Novolog) 1 - 5 unit SUBQ 0800,1200,1700,2100 [facility] PRN Reason: Protocol Last Admin: 11/07/17 12:39 Dose: Not Given Methocarbamol (Robaxin) 500 mg PO TID PRN PRN Reason: MUSCLE SPASMS Ondansetron HCl (Zofran Inj) 4 mg IVP Q6HR PRN PRN Reason: Nausea / Vomiting Polyethylene Glycol (Miralax) 17 gm PO DAILY [facility] Last Admin: 11/07/17 08:32 Dose: Not Given Saccharomyces Boulardii (Florastor) 250 mg PO BIDWM [facility] Last Admin: 11/07/17 08:32 Dose: 250 mg Sodium Chloride (Normal Saline Flush 0.9%) 10 ml IVP PRN PRN PRN Reason: NEEDED PER PROVIDER ORDERS Sodium Chloride (Normal Saline Flush 0.9%) 10 ml IVP 0100,0900,1700 [facility] Last Admin: 11/07/17 07:38 Dose: Not Given Throat Lozenges (Cepacol) 1 lozenge MM Q2HR PRN PRN Reason: Throat pain Last Admin: 11/07/17 09:03 Dose: 1 lozenge Hydrochlorothiazide 25 mg PO DAILY 07/12/13 Metformin HCl 500 mg PO BID 02/01/17 diazePAM [Valium] 2.5 mg PO QPM PRN 02/01/17 Albuterol 1.25 mg NEB DAILY 11/05/17 Aspirin [Aspirin EC] 81 mg PO DAILY 11/05/17 Methocarbamol 500 mg PO TID PRN 11/05/17 Objective - Vital Signs/Intake & Output Reviewed Vital Signs: Yes Vital Signs: Vital Signs x48h Temp Pulse Pulse Resp BP Pulse Ox 11/07/17 14:49 36.7 C 59 L 18 151/79 H 96 11/07/17 10:45 62 16 11/07/17 07:59 37.0 C 60 18 146/73 H 93 Intake & Output: Intake & Output 11/04/17 11/05/17 11/06/17 11/07/17 23:59 23:59 23:59 23:59 Intake Total 200 3342.908 1968.532 Balance 200 3342.908 1968.532 - Objective General Appearance: positive: No acute distress, Alert. negative: Lethargic Eyes Bilateral: positive: Normal inspection, PERRL, No lid inflammation, Conjunctivae nml ENT: positive: ENT inspection nml, Pharynx nml, No signs of dehydration. negative: Purulent nasal drainage, Pharyngeal erythema, Oral lesions Neck: positive: Nml inspection, Thyroid nml, No JVD, Trachea midline. negative : Thyromegaly, Lymphadenopathy (R), Carotid bruit, Swelling/bruising, Tracheal deviation Respiratory: positive: Chest non-tender, No respiratory distress, Other ( reduced lung sound bilaterally). negative: Wheezes, Rales, Rhonchi Cardiovascular: positive: Regular rate & rhythm, No murmur, No gallop. negative : Irregularly irregular, Extrasystoles, Tachycardia, Bradycardia, JVD present, Systolic murmur, Diastolic murmur Peripheral Pulses: 2+ Radial (R), 2+ Radial (L), 2+ Dorsalis pedis (R), 2+ Dorsalis pedis (L) Abdomen: positive: Non-tender, No organomegaly, Nml bowel sounds, No distention. negative: Tenderness, Guarding, Rebound Back: positive: Nml inspection. negative: CVA tenderness (R), CVA tenderness (L ) Skin: positive: Color nml, No rash, Warm, Dry. negative: Cyanosis, Diaphoresis , Pallor Extremities: positive: Non-tender, Full ROM, Nml appearance. negative: No pedal edema, Pedal edema, Calf tenderness Neurologic/Psychiatric: positive: Oriented x3, Motor nml, Sensation nml, Mood/ affect nml. negative: Weakness, Sensory loss, Facial droop, Slurred/abnml speech, Depressed mood/affect Reflexes: Ankle (R): 0 - Lab Results Fish Bones: 11/07/17 04:25 11/07/17 04:25 Other Labs: Lab Results x24hrs 11/07/17 11/07/17 11/07/17 Range/Units 11:27 07:29 04:25 WBC (4.8-10.8) x10^3/uL RBC (4.20-5.40) 10^6/uL Hgb (12.0-16.0) g/dL Hct (37.0-47.0) % MCV (81.0-99.0) fL MCH (27.0-31.0) pg MCHC (32.0-36.0) g/dL RDW (12.0-15.0) % Plt Count (130-450) 10^3/uL MPV (7.9-10.8) fL Neut # (Auto) (1.5-6.6) 10^3/uL Lymph # (Auto) (1.5-3.5) 10^3/uL [place] # (Auto) (0.0-1.0) 10^3/uL Eos # (Auto) (0.0-0.7) 10^3/uL Baso # (Auto) (0.0-0.1) 10^3/uL Absolute Nucleated RBC x10^3/uL Nucleated RBC % /100WBC Sodium (135-145) mmol/L Potassium (3.5-5.0) mmol/L Chloride (101-111) mmol/L Carbon Dioxide (21-32) mmol/L Anion Gap (6-13) BUN (6-20) mg/dL Creatinine (0.4-1.0) mg/dL Estimated GFR (MDRD) (>89) Glucose (70-100) mg/dL POC Whole Bld Glucose 139 H 121 H (70 - 100) mg/dL Calcium (8.5-10.3) mg/dL Total Bilirubin (0.2-1.0) mg/dL AST (10-42) IU/L ALT (10-60) IU/L Alkaline Phosphatase (42-121) IU/L Total Protein (6.7-8.2) g/dL Albumin (3.2-5.5) g/dL Globulin (2.1-4.2) g/dL Albumin/Globulin Ratio (1.0-2.2) Triglycerides 131 ( - 149) mg/dL Cholesterol 123 ( - 199) mg/dL LDL Cholesterol, Calc 63 ( - 129) mg/dL VLDL Cholesterol 26 mg/dL HDL Cholesterol 34 L (60 - ) mg/dL LDL/HDL Ratio 1.9 (<4.4) Cholesterol/HDL Ratio 3.6 (<4.4) 11/07/17 11/07/17 11/06/17 Range/Units 04:25 04:25 20:23 WBC 8.8 (4.8-10.8) x10^3/uL RBC 3.57 L (4.20-5.40) 10^6/uL Hgb 11.6 L (12.0-16.0) g/dL Hct 34.0 L (37.0-47.0) % MCV 95.4 (81.0-99.0) fL MCH 32.5 H (27.0-31.0) pg MCHC 34.1 (32.0-36.0) g/dL RDW 13.0 (12.0-15.0) % Plt Count 246 (130-450) 10^3/uL MPV 9.1 (7.9-10.8) fL Neut # (Auto) 5.2 (1.5-6.6) 10^3/uL Lymph # (Auto) 2.6 (1.5-3.5) 10^3/uL [place] # (Auto) 0.8 (0.0-1.0) 10^3/uL Eos # (Auto) 0.2 (0.0-0.7) 10^3/uL Baso # (Auto) 0.0 (0.0-0.1) 10^3/uL Absolute Nucleated RBC 0.00 x10^3/uL Nucleated RBC % 0.0 /100WBC Sodium 139 (135-145) mmol/L Potassium 3.8 (3.5-5.0) mmol/L Chloride 106 (101-111) mmol/L Carbon Dioxide 27 (21-32) mmol/L Anion Gap 6.0 (6-13) BUN 13 (6-20) mg/dL Creatinine 0.7 (0.4-1.0) mg/dL Estimated GFR (MDRD) 79 L (>89) Glucose 127 H (70-100) mg/dL POC Whole Bld Glucose 171 H (70 - 100) mg/dL Calcium 9.2 (8.5-10.3) mg/dL Total Bilirubin 0.5 (0.2-1.0) mg/dL AST 21 (10-42) IU/L ALT 23 (10-60) IU/L Alkaline Phosphatase 52 (42-121) IU/L Total Protein 6.4 L (6.7-8.2) g/dL Albumin 2.9 L (3.2-5.5) g/dL Globulin 3.5 (2.1-4.2) g/dL Albumin/Globulin Ratio 0.8 L (1.0-2.2) Triglycerides ( - 149) mg/dL Cholesterol ( - 199) mg/dL LDL Cholesterol, Calc ( - 129) mg/dL VLDL Cholesterol mg/dL HDL Cholesterol (60 - ) mg/dL LDL/HDL Ratio (<4.4) Cholesterol/HDL Ratio (<4.4) 11/06/17 Range/Units 16:39 WBC (4.8-10.8) x10^3/uL RBC (4.20-5.40) 10^6/uL Hgb (12.0-16.0) g/dL Hct (37.0-47.0) % MCV (81.0-99.0) fL MCH (27.0-31.0) pg MCHC (32.0-36.0) g/dL RDW (12.0-15.0) % Plt Count (130-450) 10^3/uL MPV (7.9-10.8) fL Neut # (Auto) (1.5-6.6) 10^3/uL Lymph # (Auto) (1.5-3.5) 10^3/uL [place] # (Auto) (0.0-1.0) 10^3/uL Eos # (Auto) (0.0-0.7) 10^3/uL Baso # (Auto) (0.0-0.1) 10^3/uL Absolute Nucleated RBC x10^3/uL Nucleated RBC % /100WBC Sodium (135-145) mmol/L Potassium (3.5-5.0) mmol/L Chloride (101-111) mmol/L Carbon Dioxide (21-32) mmol/L Anion Gap (6-13) BUN (6-20) mg/dL Creatinine (0.4-1.0) mg/dL Estimated GFR (MDRD) (>89) Glucose (70-100) mg/dL POC Whole Bld Glucose 107 H (70 - 100) mg/dL Calcium (8.5-10.3) mg/dL Total Bilirubin (0.2-1.0) mg/dL AST (10-42) IU/L ALT (10-60) IU/L Alkaline Phosphatase (42-121) IU/L Total Protein (6.7-8.2) g/dL Albumin (3.2-5.5) g/dL Globulin (2.1-4.2) g/dL Albumin/Globulin Ratio (1.0-2.2) Triglycerides ( - 149) mg/dL Cholesterol ( - 199) mg/dL LDL Cholesterol, Calc ( - 129) mg/dL VLDL Cholesterol mg/dL HDL Cholesterol (60 - ) mg/dL LDL/HDL Ratio (<4.4) Cholesterol/HDL Ratio (<4.4) ABX Reporting Has patient been on IV antibiotics over the past 48 hours?: Yes Assessment/Plan - Problem List (1) Pneumonia Impression: Conclusion/Plan: 11/07 pt feel better, and breath better. continue cefepim sputum culture is pending, follow up the sensitivity study start inhaled tobramycin, closely monitor if pt can tolerate continue cefepim and will start inhaled tobramycin as soon as pharmacy has it. pt had diagnosis of bronchiectasis, and hx of pseudomonas Cefepim will consult with pharmacy to see if has inhaled tobramycin sputum culture is pending blood culture is pending, follow up (2) Bronchiectasis Conclusion/Plan: 11/07 continue antibiotics, vital monitor treatment of underlying bacterial, sputum culture is pending chronic diagnosis advise to follow up headend technician as out-pt treat pneumonia cough control (3) HTN (hypertension) Conclusion/Plan: stable, continue home meds stable, will remain home meds (4) DM2 (diabetes mellitus, type 2) Conclusion/Plan: hold home metformin check A1C, Slide scale, ACHS (5) Anxiety Conclusion/Plan: stable, remain home meds D
[2017-11-07] MEDS: diazePAM 5 MG TABLET PO PRN (22:58)
[2017-11-08 05:25] LABS: BASOPHILS % (AUTO) 0.4 %; EOSINOPHILS # (AUTO) 0.3 10^3/uL (0.0-0.7); EOSINOPHILS % (AUTO) 2.7 %; HGB - HEMOGLOBIN 12.2 g/dL (12.0-16.0); LYMPHOCYTES # (AUTO) 2.8 10^3/uL (1.5-3.5); LYMPHOCYTES % (AUTO) 26.7 %; MEAN CORPUSCULAR HEMOGLOBIN 32.4 pg (27.0-31.0); MEAN CORPUSCULAR HGB CONC 33.7 g/dL (32.0-36.0); MEAN CORPUSCULAR VOLUME 96.1 fL (81.0-99.0); MEAN PLATELET VOLUME 9.1 fL (7.9-10.8); MONOCYTES # (AUTO) 0.9 10^3/uL (0.0-1.0); MONOCYTES % (AUTO) 8.1 %; NEUTROPHILS # (AUTO) 6.6 10^3/uL (1.5-6.6); NEUTROPHILS % (AUTO) 62.1 %; PLT - PLATELET COUNT 256 10^3/uL (130-450); RED BLOOD COUNT 3.78 10^6/uL (4.20-5.40); RED CELL DISTRIBUTION WIDTH 13.1 % (12.0-15.0); WHITE BLOOD COUNT 10.6 x10^3/uL (4.8-10.8)
[2017-11-08 05:31] LABS: ALBUMIN/GLOBULIN RATIO 0.8 (1.0-2.2); BILIRUBIN,TOTAL 0.5 mg/dL (0.2-1.0); CALCIUM 9.2 mg/dL (8.5-10.3); CREATININE 0.7 mg/dL (0.4-1.0); TOTAL PROTEIN 6.7 g/dL (6.7-8.2)
[2017-11-08] MEDS: INSULIN ASPART 300 UNIT/3 ML PEN SUBQ SCH ×4 (07:56→20:51)
[2017-11-08] MEDS: FAMOTIDINE 20 MG TABLET PO SCH ×2 (08:15→08:29)
[2017-11-08] MEDS: SACCHAROMYCES BOULARDII 250 MG CAPSULE PO SCH ×2 (08:15→17:55)
[2017-11-08] MEDS: guaiFENesin 600 MG TABLET PO SCH ×2 (08:16→20:46)
[2017-11-08] MEDS: hydroCHLOROthiazide 25 MG TABLET PO SCH (08:16)
[2017-11-08] MEDS: ASPIRIN EC 81 MG TABLET PO SCH ×2 (08:18→08:23)
[2017-11-08] MEDS: POLYETHYLENE GLYCOL 3350 17 GM PACKET PO SCH (08:25)
[2017-11-08] MEDS: SODIUM CHLORIDE FLUSH 0.9% 10 ML SYRINGE IVP SCH ×2 (08:29→17:51)
[2017-11-08] MEDS: ENOXAPARIN 40 MG/0.4 ML SYRINGE SUBQ SCH (08:30)
[2017-11-08] MEDS: CEFEPIME 2 GM in SODIUM CHLORIDE 0.9% MINIBAG 100 ML IV SCH ×2 (08:30→20:46)
[2017-11-08] MEDS: SODIUM CHLORIDE 0.9% 1,000 ML IV SCH (08:38)
[2017-11-08] MEDS ORDERED: CIPROFLOXACIN 250 MG TABLET PO SCH (11:00)
--- NOTE | 2017-11-08 15:35 | PROVIDER PROGRESS NOTE ---
Subjective - Prog Note Date Prog Note Date: 11/08/17 - Subjective Pt reports feeling: Improved Subjective: I called , pt's ID doctor to consult for treatment plan. advise pt should have PICC line for two weeks of IVF of Cefepime 2g bid or tid, which is dependence of pt's kidney function. order PICC line and call PICC insert team. pt report she feel better after treatment. No other complaints. plan d/c pt tomorrow. Current Medications - Current Medications Current Medications: Active Medications Acetaminophen (Tylenol) 650 mg PO Q4HR PRN PRN Reason: Pain 1 to 4 Albuterol () 2.5 mg INH RTQ4H PRN PRN Reason: Wheezing Last Admin: 11/06/17 11:14 Dose: 2.5 mg Aspirin (Ecotrin) 81 mg PO DAILY [facility] Last Admin: 11/08/17 08:23 Dose: 81 mg Diazepam (Valium) 2.5 mg PO QPM PRN PRN Reason: Insomnia Last Admin: 11/07/17 22:58 Dose: 2.5 mg Enoxaparin Sodium (Lovenox) 40 mg SUBQ DAILY [facility] Last Admin: 11/08/17 08:30 Dose: Not Given Famotidine (Pepcid) 20 mg PO DAILY [facility] Last Admin: 11/08/17 08:29 Dose: Not Given Guaifenesin (Mucinex) 600 mg PO BID [facility] Last Admin: 11/08/17 08:16 Dose: 600 mg Hydrochlorothiazide (Hydrodiuril) 25 mg PO DAILY [facility] Last Admin: 11/08/17 08:16 Dose: 25 mg Cefepime HCl 2 gm/ Sodium (Chloride) 100 mls @ 200 mls/hr IV BID [facility] Last Infusion: 11/08/17 09:30 Dose: Infused Sodium Chloride (Normal Saline 0.9%) 1,000 mls @ 83.3 mls/hr IV .Q12H1M [facility] Last Admin: 11/08/17 08:38 Dose: 83.3 mls/hr Insulin Aspart (Novolog) 1 - 5 unit SUBQ 0800,1200,1700,2100 [facility] PRN Reason: Protocol Last Admin: 11/08/17 12:42 Dose: Not Given Methocarbamol (Robaxin) 500 mg PO TID PRN PRN Reason: MUSCLE SPASMS Ondansetron HCl (Zofran Inj) 4 mg IVP Q6HR PRN PRN Reason: Nausea / Vomiting Polyethylene Glycol (Miralax) 17 gm PO DAILY [facility] Last Admin: 11/08/17 08:25 Dose: 17 gm Saccharomyces Boulardii (Florastor) 250 mg PO BIDWM [facility] Last Admin: 11/08/17 08:15 Dose: 250 mg Sodium Chloride (Normal Saline Flush 0.9%) 10 ml IVP PRN PRN PRN Reason: NEEDED PER PROVIDER ORDERS Sodium Chloride (Normal Saline Flush 0.9%) 10 ml IVP 0100,0900,1700 [facility] Last Admin: 11/08/17 08:29 Dose: Not Given Throat Lozenges (Cepacol) 1 lozenge MM Q2HR PRN PRN Reason: Throat pain Last Admin: 11/07/17 09:03 Dose: 1 lozenge Hydrochlorothiazide 25 mg PO DAILY 07/12/13 Metformin HCl 500 mg PO BID 02/01/17 diazePAM [Valium] 2.5 mg PO QPM PRN 02/01/17 Albuterol 1.25 mg NEB DAILY 11/05/17 Aspirin [Aspirin EC] 81 mg PO DAILY 11/05/17 Methocarbamol 500 mg PO TID PRN 11/05/17 Objective - Vital Signs/Intake & Output Reviewed Vital Signs: Yes Vital Signs: Vital Signs x48h Temp Pulse Pulse Resp BP Pulse Ox 11/08/17 11:00 36.8 C 75 18 137/67 H 95 11/08/17 10:30 65 16 Intake & Output: Intake & Output 11/05/17 11/06/17 11/07/17 11/08/17 23:59 23:59 23:59 23:59 Intake Total 200 3342.908 3170.000 1276.641 Output Total 525 Balance 200 3342.908 3170.000 751.641 - Objective General Appearance: positive: No acute distress, Alert. negative: Lethargic Eyes Bilateral: positive: Normal inspection, PERRL, No lid inflammation, Conjunctivae nml ENT: positive: ENT inspection nml, Pharynx nml, No signs of dehydration. negative: Purulent nasal drainage, Pharyngeal erythema, Oral lesions Neck: positive: Nml inspection, Thyroid nml, No JVD, Trachea midline. negative : Thyromegaly, Lymphadenopathy (R), Lymphadenopathy (L), Stiff neck, Carotid bruit, Swelling/bruising, Tracheal deviation Respiratory: positive: Chest non-tender, No respiratory distress, Rhonchi. negative: Wheezes, Rales Cardiovascular: positive: Regular rate & rhythm, No murmur, No gallop. negative : Irregularly irregular, Extrasystoles, Tachycardia, Bradycardia, JVD present, Systolic murmur, Diastolic murmur Peripheral Pulses: 2+ Radial (R), 2+ Radial (L), 2+ Dorsalis pedis (R), 2+ Dorsalis pedis (L) Abdomen: positive: Non-tender, No organomegaly, Nml bowel sounds, No distention. negative: Tenderness, Guarding, Rebound Back: positive: Nml inspection. negative: CVA tenderness (R), CVA tenderness (L ) Skin: positive: Color nml, No rash, Warm, Dry. negative: Cyanosis, Diaphoresis , Pallor Extremities: positive: Non-tender, Full ROM, Nml appearance. negative: Calf tenderness, Joint swelling, Yenifer's sign/cords Neurologic/Psychiatric: positive: Oriented x3, Motor nml, Sensation nml, Mood/ affect nml. negative: Weakness, Sensory loss, Facial droop, Slurred/abnml speech, Depressed mood/affect - Lab Results Fish Bones: 11/08/17 04:55 11/08/17 04:55 Other Labs: Lab Results x24hrs 11/08/17 11/08/17 11/08/17 Range/Units 11:27 07:51 05:06 WBC (4.8-10.8) x10^3/uL RBC (4.20-5.40) 10^6/uL Hgb (12.0-16.0) g/dL Hct (37.0-47.0) % MCV (81.0-99.0) fL MCH (27.0-31.0) pg MCHC (32.0-36.0) g/dL RDW (12.0-15.0) % Plt Count (130-450) 10^3/uL MPV (7.9-10.8) fL Neut # (Auto) (1.5-6.6) 10^3/uL Lymph # (Auto) (1.5-3.5) 10^3/uL [place] # (Auto) (0.0-1.0) 10^3/uL Eos # (Auto) (0.0-0.7) 10^3/uL Baso # (Auto) (0.0-0.1) 10^3/uL Absolute Nucleated RBC x10^3/uL Nucleated RBC % /100WBC Sodium (135-145) mmol/L Potassium (3.5-5.0) mmol/L Chloride (101-111) mmol/L Carbon Dioxide (21-32) mmol/L Anion Gap (6-13) BUN (6-20) mg/dL Creatinine (0.4-1.0) mg/dL Estimated GFR (MDRD) (>89) Glucose (70-100) mg/dL POC Whole Bld Glucose 150 H 123 H 150 H (70 - 100) mg/dL Calcium (8.5-10.3) mg/dL Total Bilirubin (0.2-1.0) mg/dL AST (10-42) IU/L ALT (10-60) IU/L Alkaline Phosphatase (42-121) IU/L Total Protein (6.7-8.2) g/dL Albumin (3.2-5.5) g/dL Globulin (2.1-4.2) g/dL Albumin/Globulin Ratio (1.0-2.2) 11/08/17 11/08/17 11/07/17 Range/Units 04:55 04:55 20:50 WBC 10.6 (4.8-10.8) x10^3/uL RBC 3.78 L (4.20-5.40) 10^6/uL Hgb 12.2 (12.0-16.0) g/dL Hct 36.4 L (37.0-47.0) % MCV 96.1 (81.0-99.0) fL MCH 32.4 H (27.0-31.0) pg MCHC 33.7 (32.0-36.0) g/dL RDW 13.1 (12.0-15.0) % Plt Count 256 (130-450) 10^3/uL MPV 9.1 (7.9-10.8) fL Neut # (Auto) 6.6 (1.5-6.6) 10^3/uL Lymph # (Auto) 2.8 (1.5-3.5) 10^3/uL [place] # (Auto) 0.9 (0.0-1.0) 10^3/uL Eos # (Auto) 0.3 (0.0-0.7) 10^3/uL Baso # (Auto) 0.0 (0.0-0.1) 10^3/uL Absolute Nucleated RBC 0.01 x10^3/uL Nucleated RBC % 0.1 /100WBC Sodium 136 (135-145) mmol/L Potassium 3.9 (3.5-5.0) mmol/L Chloride 105 (101-111) mmol/L Carbon Dioxide 26 (21-32) mmol/L Anion Gap 5.0 L (6-13) BUN 13 (6-20) mg/dL Creatinine 0.7 (0.4-1.0) mg/dL Estimated GFR (MDRD) 79 L (>89) Glucose 147 H (70-100) mg/dL POC Whole Bld Glucose 141 H (70 - 100) mg/dL Calcium 9.2 (8.5-10.3) mg/dL Total Bilirubin 0.5 (0.2-1.0) mg/dL AST 22 (10-42) IU/L ALT 23 (10-60) IU/L Alkaline Phosphatase 54 (42-121) IU/L Total Protein 6.7 (6.7-8.2) g/dL Albumin 3.0 L (3.2-5.5) g/dL Globulin 3.7 (2.1-4.2) g/dL Albumin/Globulin Ratio 0.8 L (1.0-2.2) 11/07/17 Range/Units 16:23 WBC (4.8-10.8) x10^3/uL RBC (4.20-5.40) 10^6/uL Hgb (12.0-16.0) g/dL Hct (37.0-47.0) % MCV (81.0-99.0) fL MCH (27.0-31.0) pg MCHC (32.0-36.0) g/dL RDW (12.0-15.0) % Plt Count (130-450) 10^3/uL MPV (7.9-10.8) fL Neut # (Auto) (1.5-6.6) 10^3/uL Lymph # (Auto) (1.5-3.5) 10^3/uL [place] # (Auto) (0.0-1.0) 10^3/uL Eos # (Auto) (0.0-0.7) 10^3/uL Baso # (Auto) (0.0-0.1) 10^3/uL Absolute Nucleated RBC x10^3/uL Nucleated RBC % /100WBC Sodium (135-145) mmol/L Potassium (3.5-5.0) mmol/L Chloride (101-111) mmol/L Carbon Dioxide (21-32) mmol/L Anion Gap (6-13) BUN (6-20) mg/dL Creatinine (0.4-1.0) mg/dL Estimated GFR (MDRD) (>89) Glucose (70-100) mg/dL POC Whole Bld Glucose 147 H (70 - 100) mg/dL Calcium (8.5-10.3) mg/dL Total Bilirubin (0.2-1.0) mg/dL AST (10-42) IU/L ALT (10-60) IU/L Alkaline Phosphatase (42-121) IU/L Total Protein (6.7-8.2) g/dL Albumin (3.2-5.5) g/dL Globulin (2.1-4.2) g/dL Albumin/Globulin Ratio (1.0-2.2) ABX Reporting Has patient been on IV antibiotics over the past 48 hours?: Yes Assessment/Plan - Problem List (1) Pneumonia Impression: Impression: 11/08 called pt's ID, order PICC line, pt will have IV cefepime for two weeks 11/07 pt feel better, and breath better. continue cefepim sputum culture is pending, follow up the sensitivity study start inhaled tobramycin, closely monitor if pt can tolerate continue cefepim and will start inhaled tobramycin as soon as pharmacy has it. 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
--- NOTE | 2017-11-08 15:39 | XRAY Report ---
Procedure Date: 11/08/2017 Accession Number: [id number] / [id number] Procedure: XR - Chest for Line Placement CPT Code: FULL RESULT: EXAM: Chest for Line Placement DATE: 11/08/2017 3:25 PM CLINICAL HISTORY: placement of Left Picc line COMPARISON: Chest radiograph 11/05/2017. TECHNIQUE: Single view of the chest. FINDINGS: CARTWRIGHT technique for line placement limits evaluation of the cardiomediastinal silhouette. The left side approach PICC terminates with its tip in the SVC, appropriately positioned. Lungs/Pleura: No focal opacities evident. No pneumothorax or pleural effusion. Mediastinum: Within exam limitations, cardiomediastinal contour is normal. Other: None. IMPRESSION: Appropriately positioned left arm PICC. RADIA
[2017-11-09] MEDS: SODIUM CHLORIDE FLUSH 0.9% 10 ML SYRINGE IVP SCH ×2 (00:53→09:52)
[2017-11-09 06:37] LABS: ALBUMIN/GLOBULIN RATIO 0.8 (1.0-2.2); BILIRUBIN,TOTAL 0.5 mg/dL (0.2-1.0); CALCIUM 9.4 mg/dL (8.5-10.3); CREATININE 0.6 mg/dL (0.4-1.0); TOTAL PROTEIN 6.8 g/dL (6.7-8.2)
[2017-11-09 07:13] LABS: BASOPHILS % (AUTO) 0.2 %; EOSINOPHILS # (AUTO) 0.2 10^3/uL (0.0-0.7); EOSINOPHILS % (AUTO) 2.1 %; HGB - HEMOGLOBIN 11.8 g/dL (12.0-16.0); LYMPHOCYTES # (AUTO) 2.4 10^3/uL (1.5-3.5); LYMPHOCYTES % (AUTO) 23.8 %; MEAN CORPUSCULAR HEMOGLOBIN 32.4 pg (27.0-31.0); MEAN CORPUSCULAR HGB CONC 33.7 g/dL (32.0-36.0); MEAN CORPUSCULAR VOLUME 96.1 fL (81.0-99.0); MEAN PLATELET VOLUME 9.4 fL (7.9-10.8); MONOCYTES # (AUTO) 0.8 10^3/uL (0.0-1.0); MONOCYTES % (AUTO) 8.1 %; NEUTROPHILS # (AUTO) 6.6 10^3/uL (1.5-6.6); NEUTROPHILS % (AUTO) 65.8 %; PLT - PLATELET COUNT 235 10^3/uL (130-450); RED BLOOD COUNT 3.63 10^6/uL (4.20-5.40); RED CELL DISTRIBUTION WIDTH 13.3 % (12.0-15.0); WHITE BLOOD COUNT 10.1 x10^3/uL (4.8-10.8)
[2017-11-09 07:47] VITALS: BP 103/72
[2017-11-09] MEDS: INSULIN ASPART 300 UNIT/3 ML PEN SUBQ SCH (08:44)
[2017-11-09] MEDS: CEFEPIME 2 GM in SODIUM CHLORIDE 0.9% MINIBAG 100 ML IV SCH (08:46)
[2017-11-09] MEDS: guaiFENesin 600 MG TABLET PO SCH (10:37)
[2017-11-09] MEDS: ENOXAPARIN 40 MG/0.4 ML SYRINGE SUBQ SCH (10:37)
[2017-11-09] MEDS: SACCHAROMYCES BOULARDII 250 MG CAPSULE PO SCH (10:37)
[2017-11-09] MEDS: ASPIRIN EC 81 MG TABLET PO SCH (10:37)
[2017-11-09] MEDS: POLYETHYLENE GLYCOL 3350 17 GM PACKET PO SCH (10:38)
[2017-11-09] MEDS: hydroCHLOROthiazide 25 MG TABLET PO SCH (10:38)
[2017-11-09] MEDS: FAMOTIDINE 20 MG TABLET PO SCH (10:38)
--- NOTE | 2017-11-09 11:16 | XRAY Report ---
Procedure Date: 11/09/2017 Accession Number: [id number] / [id number] Procedure: XR - Knee 2 View LT CPT Code: FULL RESULT: EXAM: LEFT KNEE RADIOGRAPHY EXAM DATE: 11/09/2017 09:13 AM. CLINICAL HISTORY: Pain, warm. Swelling. COMPARISON: None. TECHNIQUE: 2 views. FINDINGS: Bones: No gross bony destructive change. No aggressive periosteal reaction seen. No fractures or bone lesions. Joints: Joint space narrowing, chondrocalcinosis. Marginal spurring from the tibial plateau medial greater than lateral. Patellofemoral arthritic change. Small suprapatellar knee joint effusion. Soft Tissues: Calcified atherosclerosis in the thigh and calf. No soft tissue swelling. IMPRESSION: 1. Arthritic change in the knee, chondrocalcinosis and small knee joint effusion. No gross bony changes of osteomyelitis are seen on plain film exam. If clinical suspicion for infection is high, further assessment with MRI could also be considered. 2. Calcified atherosclerosis. 3. Exam otherwise as above. RADIA
--- NOTE | 2017-11-09 11:46 | Discharge Plan ---
Discharge Plan Disposition: 01 Home, Self Care Condition: Stable Prescriptions: Saccharomyces Boulardii [Florastor] 250 mg PO DAILY #15 capsule Diet: Diabetic Activity Restrictions: Activity as Tolerated Shower Restrictions: No (fall precaution) Instruction Topics: Guaifenesin oral solution and syrup, Pneumonia Dc, PICC Care Dc, Bronchiectasis About Additional Instructions or Follow Up instructions: You may follow up your PCP in one week, follow up your ID and lane marker installer as the schedule, have IV of Cefepime for two weeks. Should your symptoms return or worsen, you may present ER or call 911 for help. No Smoking: If you smoke, Please STOP! Call for help. Follow-up with: William Mcduffie DO [Primary Care Provider] -
--- NOTE | 2017-11-09 12:00 | DISCHARGE SUMMARY ---
Discharge Summary Discharge Date: 11/09/17 Discharging Provider: BABB Primary Care Provider: Dr. Mcduffie Condition at Discharge: Stable Discharge Disposition: 01 Home, Self Care Discharge Facility Name: home - DIAGNOSES Admission Diagnoses: (1) Pneumonia (2) Bronchiectasis (3) HTN (hypertension) (4) DM2 (diabetes mellitus, type 2) (5) Anxiety Discharge Diagnoses with Status of Each Condition: (1) Pneumonia Sputum culture reveals pseudomonas, sensitive to Cefepime. pt can not tolerate inhaled Tobramycin. consulted with both pt's ID and PCP for treatment plan. Per ID, Pt will have Cefepime 2 gram Bid for two weeks by PICC line. (2) Bronchiectasis chronic, follow up managed by pt's sash clamp operator as out-pt (3) HTN (hypertension) stable, follow up PCP (4) DM2 (diabetes mellitus, type 2) stable, follow up PCP (5) Anxiety stable, follow up PCP (6) left knee pain pt report chronic pain. Xray reveals no fractures and bone lesions with small knee joint effusion. There is no swelling, erythema on left knee. Advise pt if knee's pain became worsening, swelling, erythema, or warm, seek help from PCP or go to ER or call 911. - HPI History of Present Illness: Ms.Mueller Flaherty is a 86-yrs-old female with a PMH significance for pneumonia, bronchiectasis, HTN, HLD, DM2, who present ER for complaints of fever and cough. Pt report she had fever at 102 degree for 4 days, continued cough with "lots of greenish sputum."pt report she had the diagnosis of bronchiectasis over decades. Since that, she continue to have chronic cough, lots of sputum, many times of pneumonia. patient recently visited her PCP and put on Azithromycin. She report she finished a course of azithromycin but her productive cough with greenish sputum has continued. Her doctor told her she has pseudomonas, needs to go hospital, and has an IV placed for IV antibiotics. Patient's doctor, Dr. Dacosta was contacted by ER provider. She states that pt had had hx of psuedomonas, also patient has a an allergy to fluoroquinolones and pt should be started on cefepim 2gm and inhaled tobramycin until cultures return. Pt denies chest pain, headache, vision change, dysuria. Pt is afebrile in ER, 96% sats on room air. CXR reveals bilateral lung base of bronchopneumonia. - ALLERGIES Allergies/Adverse Reactions: Allergies Allergy/AdvReac Type Severity Reaction Status Date / Time povidone-iodine Allergy Intermediate Itching Verified 11/05/17 15:57 [From Betadine] soap * [From Betadine] Allergy Intermediate Itching Verified 11/05/17 15:57 levofloxacin AdvReac Respiratory Verified 11/05/17 15:57 - MEDICATIONS Home Medications: Ambulatory Orders Medication Instructions Recorded Confirmed Hydrochlorothiazide 25 mg PO DAILY 07/12/13 11/05/17 Metformin HCl 500 mg PO BID 02/01/17 11/05/17 diazePAM [Valium] 2.5 mg PO QPM PRN 02/01/17 11/05/17 Albuterol 1.25 mg NEB DAILY 11/05/17 11/05/17 Aspirin [Aspirin EC] 81 mg PO DAILY 11/05/17 11/05/17 Methocarbamol 500 mg PO TID PRN 11/05/17 11/05/17 Guaifenesin [Mucinex] 600 mg PO BID PRN #20 tablet.er 11/09/17 Saccharomyces Boulardii [Florastor] 250 mg PO DAILY #15 capsule 11/09/17 - PHYSICAL EXAM AT DISCHARGE General Appearance: positive: No acute distress, Alert. negative: Lethargic Eyes Bilateral: positive: Normal inspection, PERRL, No lid inflammation, Conjunctivae nml ENT: positive: ENT inspection nml, Pharynx nml, No signs of dehydration. negative: Purulent nasal drainage, Pharyngeal erythema, Oral lesions Neck: positive: Nml inspection, Thyroid nml, No JVD, Trachea midline. negative : Thyromegaly, Lymphadenopathy (R), Lymphadenopathy (L), Stiff neck, Swelling/ bruising, Tracheal deviation Respiratory: positive: Chest non-tender, No respiratory distress, Rhonchi. negative: Wheezes, Rales Cardiovascular: positive: Regular rate & rhythm, No murmur, No gallop. negative : Irregularly irregular, Extrasystoles, Tachycardia, Bradycardia, JVD present, Systolic murmur, Diastolic murmur Peripheral Pulses: positive: 2+ Abdomen: positive: Non-tender, No organomegaly, Nml bowel sounds, No distention. negative: Tenderness, Guarding, Rebound Back: positive: Nml inspection. negative: CVA tenderness (R), CVA tenderness (L ) Skin: positive: Color nml, No rash, Warm, Dry. negative: Cyanosis, Diaphoresis , Pallor Extremities: positive: Non-tender, Full ROM, Nml appearance. negative: Calf tenderness, Joint swelling, Yenifer's sign/cords - LABS Result Diagrams: 11/09/17 05:30 11/09/17 05:30 - FOLLOW UP Follow Up: You may follow up your PCP in one week, follow up your ID and sash clamp operator as the schedule, have IV of Cefepime for two weeks. Should your symptoms return or worsen, you may present ER or call 911 for help. - TIME SPENT Time Spent in Discharge (Minutes): 55
== END 2017-11-09 12:15 | disposition home or self-care (01) | DRG 178 ==
LOC: ED 14:44 → MS3 18:15
PROVIDERS: ADMIT Nurse Practitioner Gerontology; ATTEND Nurse Practitioner Gerontology
PROC: 02HV33Z Insertion of Infusion Device into Superior Vena Cava, Percutaneous Approach (ICD-10-PCS; principal; 2017-11-08)
DX: J18.0 Bronchopneumonia, unspecified organism (principal); J15.1 Pneumonia due to Pseudomonas; J47.0 Bronchiectasis with acute lower respiratory infection; I10 Essential (primary) hypertension; E11.9 Type 2 diabetes mellitus without complications; F41.9 Anxiety disorder, unspecified; M25.562 Pain in left knee; G89.29 Other chronic pain; M25.462 Effusion, left knee; E78.5 Hyperlipidemia, unspecified; Z77.22 Contact with and (suspected) exposure to environmental tobacco smoke (acute) (chronic); Z88.1 Allergy status to other antibiotic agents; Z79.84 Long term (current) use of oral hypoglycemic drugs; Z79.82 Long term (current) use of aspirin; Z79.899 Other long term (current) drug therapy; Z87.01 Personal history of pneumonia (recurrent)
CPT/HCPCS: 36415; 71045; 71046; 80053; 80061; 83036; 83605; 83690; 83721; 83735; 85025; 87040; 87070; 87077; 87181; 87205; 94640; 99283; 99284

== ENCOUNTER 2017-11-09 20:22 | Outpatient (CLI) | payer MEDICARE, BC, OTHER ==
[2017-11-09] MEDS ORDERED: CEFEPIME 2 GM in SODIUM CHLORIDE 0.9% MINIBAG 100 ML IV SCH (21:00)
== END 2017-11-09 20:23 | disposition home or self-care (01) ==
LOC: MAC.MOP 20:22
PROVIDERS: ATTEND Internal Medicine Hematology & Oncology
DX: Z02.9 Encounter for administrative examinations, unspecified (principal)

== ENCOUNTER 2017-11-11 06:42 | Emergency (ER) | payer MEDICARE, BC, OTHER ==
--- NOTE | 2017-11-11 07:51 | ED Physician Documentation ---
History of Present Illness - Stated complaint Stated Complaint: UNABLE TO WALK - Chief complaint Chief Complaint: Ext Problem - History obtained from History obtained from: Patient - History of Present Illness Timing: How many days ago (3) - Additonal information Additional information: 86-year-old female has been hospitalized for pneumonia with Pseudomonas 6 days ago has developed pain in her left knee about 3 days ago that is now resolved and has showed up in her left ankle. She has pain that showed up yesterday in the lateral aspect of the ankle today it is in the lateral aspect of the ankle and she does have pain at the back of her calf as well. She has exquisite pain even to move the foot a slight amount and she is unable to bear weight on. She does not know of any injury to her ankle or her knee states that her knee is not bothering her now. Review of Systems Constitutional: denies: Fever, Chills, Myalgias, Fatigue Eyes: denies: Decreased vision Ears: denies: Ear pain Nose: denies: Congestion Throat: denies: Sore throat Cardiac: denies: Chest pain / pressure, Palpitations Respiratory: reports: Cough. denies: Dyspnea GI: denies: Abdominal Pain, Nausea, Vomiting : denies: Dysuria, Frequency Skin: denies: Rash Musculoskeletal: reports: Extremity pain, Joint pain, Joint swelling, Pain with weight bearing. 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 - Present Medications Home Medications: Ambulatory Orders Medication Instructions Recorded Confirmed Hydrochlorothiazide 25 mg PO DAILY 07/12/13 11/05/17 Metformin HCl 500 mg PO BID 02/01/17 11/05/17 diazePAM [Valium] 2.5 mg PO QPM PRN 02/01/17 11/05/17 Albuterol 1.25 mg NEB DAILY 11/05/17 11/05/17 Aspirin [Aspirin EC] 81 mg PO DAILY 11/05/17 11/05/17 Methocarbamol 500 mg PO TID PRN 11/05/17 11/05/17 Guaifenesin [Mucinex] 600 mg PO BID PRN #20 tablet.er 11/09/17 Saccharomyces Boulardii [Florastor] 250 mg PO DAILY #15 capsule 11/09/17 HYDROcod/ACETAM 5/325 [[place] 5/325] 1 - 2 ea PO Q6H PRN #15 tablet 11/11/17 - Allergies Allergies/Adverse Reactions: Allergies Allergy/AdvReac Type Severity Reaction Status Date / Time povidone-iodine Allergy Intermediate Itching Verified 11/11/17 06:56 [From Betadine] soap * [From Betadine] Allergy Intermediate Itching Verified 11/11/17 06:56 levofloxacin AdvReac Respiratory Verified 11/11/17 06:56 - Social History Does the pt smoke?: No Smoking Status: Never smoker Does the pt drink ETOH?: No Does the pt have substance abuse?: No - Immunizations Immunizations are current?: Yes - POLST Patient has POLST: No POLST Status: Full Code PD ED PE NORMAL - Vitals Vital signs reviewed: Yes (normal) - General General: Alert and oriented X 3, No acute distress, Well developed/nourished - HEENT HEENT: Atraumatic, PERRL, EOMI - Neck Neck: Supple, no meningeal sign - Cardiac Cardiac: RRR, No murmur - Respiratory Respiratory: No respiratory distress, Clear bilaterally - Abdomen Abdomen: Soft, Non tender - Back Back: No CVA TTP, No spinal TTP - Derm Derm: Normal color, Warm and dry, No rash - Extremities Extremities: No deformity, Other (There is exquisit tenderness to the left ankle with swelling both medial and lateral and pain to any slight movement of the ankle joint. Like gout. ) - Neuro Neuro: Alert and oriented X 3, final canoe inspector 2-12 intact, No motor deficit, No sensory deficit, Normal speech Eye Opening: Spontaneous Motor: Obeys Commands Verbal: Oriented GCS Score: 15 - Psych Psych: Normal mood, Normal affect Results - Vitals Vitals: Vital Signs - 24 hr 11/11/17 11/11/17 06:51 09:04 Temperature 36.3 C L Heart Rate 84 77 Respiratory 18 15 Rate Blood Pressure 128/71 140/74 H O2 Saturation 95 95 Oxygen O2 Source Room air - Rads (name of study) duplex veins Radiology: Prelim report reviewed (Impression: Normal. No evidence for deep venous thrombosis.), EMP read indepedently, See rad report ankle Radiology: Prelim report reviewed (Impression: 1. No acute osseous abnormality. 2 mild soft tissue swelling inferior to the medial malleolus.), EMP read indepedently, See rad report PD MEDICAL DECISION MAKING - ED course Complexity details: reviewed old records, reviewed results, re-evaluated patient , considered differential, d/w patient ED course: 86-year-old female being treated for pneumonia appears to have improvement in her pneumonia and she is now developed migrating pain in her left lower extremity. For starting with her knee and now with her ankle. Her ankle has exquisite tenderness consistent with acute gout. There is no trauma to the area and duplex venous scanning of the left lower extremities without evidence of DVT. She is administered dexamethasone here in the emergency department and we will provide her with some pain medication and some crutches. - Sepsis Event Vital Signs: Vital Signs - 24 hr 11/11/17 11/11/17 06:51 09:04 Temperature 36.3 C L Heart Rate 84 77 Respiratory 18 15 Rate Blood Pressure 128/71 140/74 H O2 Saturation 95 95 Oxygen O2 Source Room air Departure - Departure Disposition: 01 Home, Self Care Clinical Impression: Gout of left ankle Qualifiers: Gout etiology: unspecified cause Chronicity: acute Qualified Code(s): M10.9 - Gout, unspecified Condition: Stable Instructions: ED Arthritis Gout Follow-Up: William Mcduffie DO [Primary Care Provider] - Prescriptions: HYDROcod/ACETAM 5/325 [[place] 5/325] 1 - 2 ea PO Q6H PRN #15 tablet PRN Reason: Pain
[2017-11-11] MEDS ORDERED: DEXAMETHASONE 10 MG/ML VIAL PO STA (07:57)
[2017-11-11] MEDS ORDERED: CHERRY SYRUP 10 ML UDC PO ONE (08:14)
--- NOTE | 2017-11-11 08:28 | XRAY Report ---
Procedure Date: 11/11/2017 Accession Number: [id number] / [id number] Procedure: XR - Ankle 3 View LT CPT Code: FULL RESULT: EXAM: LEFT ANKLE RADIOGRAPHY EXAM DATE: 11/11/2017 08:06 AM. CLINICAL HISTORY: Medial ankle pain for several hours. Pain on the lateral side when dorsiflexing. COMPARISON: No prior images of the left ankle. Right ankle radiographs 08/18/2009. TECHNIQUE: 3 views. FINDINGS: Bones: Diffusely demineralized. No fractures or bone lesions. There is a corticated ossicle adjacent to the tip of the distal fibula consistent with an unfused accessory ossification center or sequela of remote trauma. Joints: Normal alignment. No effusion. No subluxations. The ankle mortise is normally aligned. Soft Tissues: There is mild soft tissue swelling inferior to the medial malleolus. Mild vascular calcifications are present. IMPRESSION: 1. No acute osseous abnormality. 2. Mild soft tissue swelling inferior to the medial malleolus. RADIA
--- NOTE | 2017-11-11 09:19 | Ultrasound Report ---
Procedure Date: 11/11/2017 Accession Number: [id number] / [id number] Procedure: US - Duplex Ext Veins Left CPT Code: FULL RESULT: EXAM: Duplex Ext Veins Left DATE: 11/11/2017 8:49 AM CLINICAL HISTORY: swelling and pain after confinement COMPARISON: None. TECHNIQUE: Real-time sonographic vascular imaging was performed by the administrative support coordinator through the lower extremity utilizing both color-flow and Doppler spectral analysis. [employer] players club representative static images were saved for review. FINDINGS: Common Femoral Vein (CFV): Normal. Superficial Femoral Vein (SFV) Prox: Normal. Superficial Femoral Vein (SFV) Mid: Normal. Superficial Femoral Vein (SFV) Dist: Normal. Popliteal Vein: Normal. Posterior Tibial Veins: Normal. Peroneal Veins: Normal. Contralateral Side CFV: Normal. Other: All veins were patent by compression as well as color Doppler ultrasound. Normal augmentation is noted. IMPRESSION: Normal. No evidence for deep venous thrombosis. RADIA
[2017-11-11 10:21] VITALS: BP 128/61
== END 2017-11-11 10:10 | disposition home or self-care (01) ==
LOC: ED 06:42
DX: M10.9 Gout, unspecified (principal); I10 Essential (primary) hypertension; E78.00 Pure hypercholesterolemia, unspecified; E11.9 Type 2 diabetes mellitus without complications; Z79.84 Long term (current) use of oral hypoglycemic drugs; Z79.82 Long term (current) use of aspirin
CPT/HCPCS: 73610; 93971; 99283; A9270

== ENCOUNTER 2017-11-27 19:35 | Emergency (ER) | payer MEDICARE, BC, OTHER ==
--- NOTE | 2017-11-27 21:08 | ED Physician Documentation ---
PD HPI Fall - Stated complaint Stated Complaint: GLF/LT SHOULDER PX/RT ANKLE PX - Chief complaint Chief Complaint: Trauma Ext - History obtained from History obtained from: Patient - History of Present Illness Mechanism of injury: Tripped Fall distance: Standing position Where injury occurred: Home Timing - onset: Today Injury(ies) location: Back, Left Uppper Extremity, Right Foot Pain level now: 5 Quality of pain: Pain Associated symptoms: No: LOC Symptoms improve with: Rest Worsens with: Movement, Palpation Recently seen: Not recently seen - Additional information Additional information: fell while performing chores at home, c/o pain left shoulder, right foot, upper back Review of Systems Cardiac: reports: Reviewed and negative Respiratory: reports: Reviewed and negative GI: reports: Reviewed and negative Musculoskeletal: reports: Back pain, Joint pain Neurologic: denies: Focal weakness, Numbness, Headache, Head injury, LOC PD PAST MEDICAL HISTORY - Past Medical History Past Medical History: Yes Cardiovascular: Hypertension, High cholesterol Respiratory: Other Neuro: Head injury Endocrine/Autoimmune: Type 2 diabetes - Past Surgical History Past Surgical History: Yes 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: 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 - Present Medications Home Medications: Ambulatory Orders Medication Instructions Recorded Confirmed Hydrochlorothiazide 25 mg PO DAILY 07/12/13 11/11/17 Metformin HCl 500 mg PO BID 02/01/17 11/11/17 diazePAM [Valium] 2.5 mg PO QPM PRN 02/01/17 11/11/17 Albuterol 1.25 mg NEB DAILY 11/05/17 11/11/17 Aspirin [Aspirin EC] 81 mg PO DAILY 11/05/17 11/11/17 Methocarbamol 500 mg PO TID PRN 11/05/17 11/11/17 Guaifenesin [Mucinex] 600 mg PO BID PRN #20 tablet.er 11/09/17 11/11/17 Saccharomyces Boulardii [Florastor] 250 mg PO DAILY #15 capsule 11/09/17 HYDROcod/ACETAM 5/325 [[place] 5/325] 1 - 2 ea PO Q6H PRN #15 tablet 11/11/17 - Allergies Allergies/Adverse Reactions: Allergies Allergy/AdvReac Type Severity Reaction Status Date / Time povidone-iodine Allergy Intermediate Itching Verified 11/11/17 06:56 [From Betadine] soap * [From Betadine] Allergy Intermediate Itching Verified 11/11/17 06:56 levofloxacin AdvReac Respiratory Verified 11/11/17 06:56 - Social History Does the pt smoke?: No Smoking Status: Never smoker Does the pt drink ETOH?: No Does the pt have substance abuse?: No - Immunizations Immunizations are current?: Yes - POLST Patient has POLST: No POLST Status: Full Code PD ED PE NORMAL - Vitals Vital signs reviewed: Yes - General General: Alert and oriented X 3, No acute distress, Well developed/nourished - Respiratory Respiratory: No respiratory distress, Clear bilaterally - Neuro Neuro: Alert and oriented X 3, business development coordinator 2-12 intact, No motor deficit, No sensory deficit PD ED PE EXPANDED - Extremities Extremities: Other (left shoulder tenderness predominantly posterior aspect and along lateral scapular edge. tenderness right ankle at lateral malleolus) Results - Vitals Vitals: Oxygen O2 Source Room air - Rads (name of study) chest xray Radiology: Prelim report reviewed, See rad report left shoulder xrays Radiology: Prelim report reviewed, See rad report right ankle xrays Radiology: Prelim report reviewed, See rad report left scapula views Radiology: Prelim report reviewed, See rad report PD MEDICAL DECISION MAKING - ED course Complexity details: reviewed results, re-evaluated patient, considered differential, d/w patient, d/w family - Sepsis Event Vital Signs: Oxygen O2 Source Room air Departure - Departure Disposition: 01 Home, Self Care Clinical Impression: Fall Qualifiers: Encounter type: initial encounter Qualified Code(s): W19.XXXA - Unspecified fall, initial encounter Right ankle sprain Qualifiers: Encounter type: initial encounter Involved ligament of ankle: unspecified ligament Qualified Code(s): S93.401A - Sprain of unspecified ligament of right ankle, initial encounter Contusion of shoulder, left Qualifiers: Encounter type: initial encounter Qualified Code(s): S40.012A - Contusion of left shoulder, initial encounter Condition: Good Instructions: ED Sprain Ankle W X Ray, ED Mechanical Fall, ED Contusion Shoulder Follow-Up: William Mcduffie DO [Primary Care Provider] - (3-5 days if not improving) Comments: Use your sling as needed for comfort. I recommend keeping the sling on for the first 2-3 days, and then as needed. Discharge Date/Time: 11/27/17 23:05
[2017-11-27] MEDS ORDERED: HYDROcod/ACETAM 5/325 MG TABLET PO STA (22:04)
--- NOTE | 2017-11-27 22:20 | XRAY Report ---
Procedure Date: 11/27/2017 Accession Number: [id number] / [id number] Procedure: XR - Chest 2 View X-Ray CPT Code: 04925 FULL RESULT: EXAM: CHEST RADIOGRAPHY EXAM DATE: 11/27/2017 09:53 PM. CLINICAL HISTORY: Shortness of breath status post fall COMPARISON: Chest 11/08/2017. TECHNIQUE: 2 views. FINDINGS: Lungs/Pleura: Pulmonary venous congestion. No pleural effusion or pneumothorax. Mediastinum: Normal heart size. IMPRESSION: Pulmonary venous congestion. RADIA
--- NOTE | 2017-11-27 22:22 | XRAY Report ---
Procedure Date: 11/27/2017 Accession Number: [id number] / [id number] Procedure: XR - Ankle 3 View RT CPT Code: FULL RESULT: EXAM: RIGHT ANKLE RADIOGRAPHY EXAM DATE: 11/27/2017 09:53 PM. CLINICAL HISTORY: fell on extremity. Fall, lateral ankle pain. COMPARISON: None. TECHNIQUE: 3 views. FINDINGS: Bones: Demineralized bones. No fractures or bone lesions. Joints: Normal. No effusion. No subluxations. The ankle mortise is normally aligned. Soft Tissues: No soft tissue swelling. IMPRESSION: No acute findings. RADIA
--- NOTE | 2017-11-27 22:24 | XRAY Report ---
Procedure Date: 11/27/2017 Accession Number: [id number] / [id number] Procedure: XR - Shoulder 3 View LT CPT Code: FULL RESULT: EXAM: LEFT SCAPULA RADIOGRAPHY 2 VIEWS LEFT SHOULDER RADIOGRAPHY 3 VIEWS EXAM DATE: 11/27/2017 09:53 PM. CLINICAL HISTORY: Fall, pain, tenderness. COMPARISON: None. FINDINGS: Bones: No evidence for acute fracture. Demineralized bones. Joints: Mild glenohumeral degenerative joint disease. No dislocation. Unremarkable acromioclavicular joint. IMPRESSION: No acute findings. Mild glenohumeral degenerative joint disease. RADIA
--- NOTE | 2017-11-27 22:24 | XRAY Report ---
Procedure Date: 11/27/2017 Accession Number: [id number] / [id number] Procedure: XR - Scapula 2 View LT CPT Code: FULL RESULT: EXAM: LEFT SCAPULA RADIOGRAPHY 2 VIEWS LEFT SHOULDER RADIOGRAPHY 3 VIEWS EXAM DATE: 11/27/2017 09:53 PM. CLINICAL HISTORY: Fall, pain, tenderness. COMPARISON: None. FINDINGS: Bones: No evidence for acute fracture. Demineralized bones. Joints: Mild glenohumeral degenerative joint disease. No dislocation. Unremarkable acromioclavicular joint. IMPRESSION: No acute findings. Mild glenohumeral degenerative joint disease. RADIA
[2017-11-27 22:47] VITALS: BP 139/73
== END 2017-11-27 23:05 | disposition home or self-care (01) ==
LOC: ED 19:35
DX: S93.401A Sprain of unspecified ligament of right ankle, initial encounter (principal); S40.012A Contusion of left shoulder, initial encounter; W03.XXXA Other fall on same level due to collision with another person, initial encounter; Y92.009 Unspecified place in unspecified non-institutional (private) residence as the place of occurrence of the external cause; I10 Essential (primary) hypertension; E78.00 Pure hypercholesterolemia, unspecified; E11.9 Type 2 diabetes mellitus without complications; Z79.84 Long term (current) use of oral hypoglycemic drugs; Z79.82 Long term (current) use of aspirin
CPT/HCPCS: 71046; 73010; 73030; 73610; 99283; A9270